=== PATIENT | female | born 1940 | race Caucasian/White ===

== ENCOUNTER 2017-01-12 09:20 | Emergency (ER) | payer OTHER ==
[2017-01-12 09:35] VITALS: BMI 24.2
--- NOTE | 2017-01-12 09:38 | PDOC ---
History of Present Illness - General Chief Complaint: Pain Stated Complaint: LEFT SHOULDER, LEFT ARM TINGLING, PAIN Time Seen by Provider: 01/12/17 09:27 History Source: Patient Exam Limitations: No Limitations - History of Present Illness Initial Comments: 01/12/17 09:32 76 y/o female with left arm pain and tingling for 3-4 days. Noticed increase SOB and concerned about heart failure. Denies chest pain, back pain, fall or trauma. No fever or chills or cough. Denies headache or weakness. Took a Naproxen and feeling better. No neck pain. No jaw or chest pain. Has been sleeping on extra pillow, but no swelling in legs. This has happened before when she went into heart failure as per patient. 01/12/17 10:46 Severity: mild Associated Symptoms: denies: chest pain, cough, diaphoresis NIH Stroke Scale - Initial Evaluation Level of consciousness: Alert Ask patient the month and their age: Answers both correctly Ask patient to open & close eyes; make fist and let go: Obeys both correctly Best gaze (horizontal eye movement): Normal Visual field testing: No visual field loss Facial paresis (Show teeth/raise eyebrows/close eyes tight): Normal symmetrical movement Motor Function: Left Arm: Normal Motor Function: Right Arm: Normal (extends arm 90 (or 45) degrees for 10 seconds without drift Motor Function: Left Leg: Normal (extends leg 30 degrees for 5 seconds without drift) Motor Function: Right Leg: Normal (extends leg 30 degrees for 5 seconds without drift) Limb Ataxia: No ataxia Sensory(Use pinprick test arms,legs,trunk,face/side to side): Normal Best language (Describe picture, name items, read sentences): No Aphasia Dysarthria (read several words): Normal articulation Extinction and Inattention: No abnormality - Total Score NIH Stroke Scale Score: 0 Past History - Past Medical History Allergies/Adverse Reactions: Allergies Allergy/AdvReac Type Severity Reaction Status Date / Time latex Allergy Severe Hives Verified 01/12/17 09:25 codeine [Codeine] Allergy Intermediate Verified 01/12/17 09:25 Penicillins Allergy Intermediate Verified 01/12/17 09:25 shellfish derived Allergy Verified 01/12/17 09:25 "MYCINS" Allergy Uncoded 01/12/17 09:25 Home Medications: Ambulatory Orders Aspirin [Aspirin EC] 81 mg PO DAILY 01/12/17 Atorvastatin Ca [Lipitor] 10 mg PO HS 01/12/17 Carvedilol 6.25 mg PO BID 01/12/17 Cholecalciferol (Vitamin D3) [Vitamin D3] 1,000 unit PO DAILY 01/12/17 Losartan Potassium 100 mg PO BID 01/12/17 Magnesium 500 mg PO DAILY 01/12/17 Metformin HCl [Glucophage] 1,000 mg PO BID 01/12/17 Spironolactone 25 mg PO DAILY 01/12/17 Anemia: No Asthma: No Cancer: No Cardiac Disorders: Yes CVA: No COPD: No CHF: Yes Dementia: No Diabetes: Yes (2000) GI Disorders: No Disorders: No HTN: No Hypercholesterolemia: No Liver Disease: No Seizures: No Thyroid Disease: No - Surgical History Abdominal Surgery: No Appendectomy: No Cardiac Surgery: No Cholecystectomy: No Lung Surgery: No Neurologic Surgery: No Orthopedic Surgery: Yes (RIGHT KNEE ARTHROSCOPY 06/23) - Psycho/Social/Smoking Cessation Hx Anxiety: No Suicidal Ideation: No Smoking Status: No Smoking History: Never smoked Have you smoked in the past 12 months: No Number of Cigarettes Smoked Daily: 0 If you are a former smoker, when did you quit?: 15 YRS AGO Hx Alcohol Use: No Drug/Substance Use Hx: No Substance Use Type: None Hx Substance Use Treatment: No Review of Systems - Review of Systems Able to Perform ROS?: Yes Is the patient limited [place] proficient: No Constitutional: No: Chills, Fever Respiratory: Yes: Orthopnea, Shortness of Breath. No: Cough Cardiac (ROS): No: Chest Pain, Edema ABD/GI: No: Diarrhea, Nausea, Vomiting : No: Dysuria Musculoskeletal: No: Back Pain All Other Systems: Reviewed and Negative *Physical Exam - Physical Exam General Appearance: Yes: Nourished, Appropriately Dressed. No: Apparent Distress HEENT: positive: EOMI, TAMMY, Normal ENT Inspection, Normal Voice Neck: positive: Trachea midline, Supple, Other (no spinous process tenderness, full ROM). negative: Tender, Normal Thyroid, Rigid, Carotid bruit, Thyromegaly Respiratory/Chest: positive: Lungs Clear, Normal Breath Sounds. negative: Chest Tender, Respiratory Distress, Crackles, Rales, Stridor, Wheezing Cardiovascular: positive: Regular Rhythm, Regular Rate, S1, S2. negative: Edema , JVD, Murmur Vascular Pulses: Femoral (R): 4+, Femoral (L): 4+, Carotid (R): 4+, Carotid (L) : 4+, Dorsalis-Pedis (R): 4+, Doralis-Pedis (L): 4+ Gastrointestinal/Abdominal: positive: Normal Bowel Sounds, Flat, Soft. negative : Tender, Organomegaly, Pulsatile Mass Lymphatic: negative: Adenopathy, Tenderness, Other Musculoskeletal: positive: Normal Inspection. negative: CVA Tenderness Extremity: positive: Normal Capillary Refill, Normal Inspection, Normal Range of Motion Integumentary: positive: Normal Color, Dry, Warm Neurologic: positive: hybrid technologist II-XII NML intact, Fully Oriented, Alert, Normal Mood/ Affect (strength 5+/5 b/l in UE and LE, no focal deficits noted), Normal Response, Motor Strength 5/5 Heart Score/ECG Review - History History: Slightly suspicious - Electrocardiogram EKG: Normal - Age Age: >/= 65 - Risk Factors Risk Factors Heart Score: Yes Hx Hypertension, Yes Hx Diabetes Based on the list above the patient has:: >/=3 risk factors or Hx atherosclerotic disease - ECG Intrepretation Rhythm: Regular Rhythm Comment:: 01/12/17 09:37 HR 67 NSR, no ST-T wave elevations noted - QRS Comment:: 01/12/17 09:43 When compared to EKG on 04/07/2015, today's EKG improved, NSR with no ST-T wave changes today compared to old EKG - ECG Impressions Normal ECG: Yes Non-specific ST Elevation: No ED Treatment Course - LABORATORY CBC & Chemistry Diagram: 01/12/17 09:40 01/12/17 09:40 - RADIOLOGY Radiology Studies Ordered: Category Date Time Status CHEST X-RAY PORTABLE* [RAD] Stat Radiology 01/12/17 09:30 Ordered 01/12/17 10:13 CXR NAD 01/12/17 11:22 Pt is feeling better, explained pain/tingling can be related to diabetic neuropathy or pinched nerve. Neurologically intact, no sign of stroke Spoke with Dr. Barcenas, covering for Dr. 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 Chest X-Ray Result: No Infiltrates *DC/Admit/Observation/Transfer Diagnosis at time of Disposition: Pain of left upper extremity - Discharge Dispostion Disposition: HOME Condition at time of disposition: Stable Admit: No - Patient Instructions Printed Discharge Instructions: DI for Arm Pain Additional Instructions: Rest, Tylenol Naproxen 2x/day as needed Follow up with [employer] Supervisor this week If worsen return to ER
[2017-01-12 10:02] LABS: MCH 29.8 pg (25.7-33.7); MCHC 33.8 g/dl (32.0-36.0); MEAN CELL VOLUME 87.9 fl (80-96); MEAN PLT VOLUME 8.4 fl (7.5-11.1); PLATELET COUNT 239 K/MM3 (134-434); RDW 12.7 % (11.6-15.6); WHITE BLOOD COUNT 7.7 K/mm3 (4.0-10.8)
[2017-01-12 10:04] LABS: BASOPHIL 0.8 % (0-2.0); EOSINOPHIL 2.6 % (0-4.5); NEUTROPHILS 66.8 % (42.8-82.8)
[2017-01-12 10:08] LABS: ALBUMIN 3.9 g/dl (3.5-5.0); ALK PHOS 68 U/L (32-92); ANION GAP 6 (8-16); BILIRUBIN,TOTAL 0.4 mg/dl (0.2-1.0); CALCIUM 9.1 mg/dl (8.4-10.2); CO2 25 mmol/L (22-28); CREATININE 1.3 mg/dl (0.6-1.3); GLUCOSE,RANDOM 224 mg/dl (74-106); SGOT/AST 15 U/L (10-42); SGPT/ALT 10 U/L (10-40); TOT PROT 6.1 g/dl (6.4-8.3)
[2017-01-12 11:29] VITALS: BP 149/84; PULSE 78; TEMP 98.1
--- NOTE | 2017-01-12 20:36 | EKG ---
Test Reason : Blood Pressure : / mmHG Vent. Rate : 067 BPM Atrial Rate : 067 BPM P-R Int : 168 ms QRS Dur : 080 ms QT Int : 430 ms P-R-T Axes : 063 043 092 degrees QTc Int : 454 ms SINUS RHYTHM NONSPECIFIC T WAVE ABNORMALITY NO PREVIOUS ECGS AVAILABLE Confirmed by JEFF SHEIKH MD ([id number]) on 01/12/2017 8:36:13 PM Referred By: EDA BARTHOLOMEW Confirmed By:JEFF HSEIKH MD
== END 2017-01-12 11:30 | disposition home or self-care (01) ==
LOC: FER 09:20
DX: M79.602 Pain in left arm (principal); I50.9 Heart failure, unspecified; E11.9 Type 2 diabetes mellitus without complications; Z87.891 Personal history of nicotine dependence
CPT/HCPCS: 36415; 71010-TC; 80053; 83880; 84484; 85025; 93005; 99285-25

== ENCOUNTER 2017-09-03 20:20 | Observation (INO) | payer OTHER ==
--- NOTE | 2017-09-03 20:35 | PDOC ---
History of Present Illness - General History Source: Patient Exam Limitations: No Limitations - History of Present Illness Initial Comments: The patient is a 77 year old female who presents to the emergency department complaining of ankle swelling and shortness of breath. The patient reports having bilateral ankle swelling occurring at the start of the month. She reports shortness of breath started a few days ago and has progressively worsened. She reports right sided pain with breathing. She describes the symptoms and pain similar to previous episodes related to CHF. The patient reports 4 pillow orthopnea which transitioned from 2 pillows. The patient denies chest pain, shortness of breath, headache, and dizziness. Denies fevers, chills, nausea, vomiting, diarrhea, and constipation. Denies dysuria, frequency, urgency, and hematuria. Denies immobilization. Denies recent travel. Denies sick contact. Denies any other kinds of injury. Denies suicidal or homicidal ideations. Denies auditory or visual hallucinations PAST MEDICAL HISTORY: Cardiac disorders, CHF, Diabetes, HTN, HLD, and Myasthenia Gravis. PAST SURGICAL HISTORY: Triple Bypass (2016), Cataracts. FAMILY HISTORY: no pertinent history SOCIAL HISTORY: Former smoker, 2002. Pt lives with family and is employed. MEDICATIONS: reviewed ALLERGIES: As per nursing notes ROS General: No fevers or chills, no weakness, no weight loss HEENT: No change in vision. No sore throat,. No ear pain Cardiovascular: (+)Shortness of breath. No chest pain. Respiratory:No cough, or wheezing. Gastrointestinal: no nausea, vomiting, diarrhea or constipation, No rectal bleeding Genitourinary: No dysuria, hematuria, or frequency Musculoskeletal: (+)Bilateral ankle swelling. (+)Pain to right side of body. Neurologic: No headache, vertigo, dizziness or loss of consciousness Psychiatric: nor depression Skin: No rashes or easy bruising Endocrine: no increased thirst or abnormal weight change Allergic: no skin or latex allergy All other systems reviewed and normal Exam: General: Well-nourished well-developed individual, no acute distress HEENT: Throat: Normal, tonsils normal, no erythema or exudate Neck: Supple, no meningeal signs, no lymphadenopathy Eyes::Pupils equal reactive and round, extraocular motion intact Chest: Nontender to palpation Cardiac: S1-S2 normal, regular rate and rhythm, no murmurs rubs or gallops Respiratory:(+)Few rales at bilateral bases. Abdomen: Soft, nondistended, normal bowel sounds, nontender to palpation diffusely Extremities: (+)Mild non pitting edema of feet, bilaterally. Otherwise, normal range of motion. Skin: No rashes Neuro: Alert and oriented x3, nonfocal exam, grossly intact, normal gait Psych: Normal mood and affect <Yoli Uriostegui - Last Filed: 09/03/17 21:32> - General History Source: Patient Exam Limitations: No Limitations - History of Present Illness Initial Comments: 09/03/17 21:04 A portion of this note was documented by scribe services under my direction. I have reviewed the details of the note, within reason, and agree with the documentation. The case summary and management plan written by me. Medical decision making: This is a 77-year-old female who comes in complaining of shortness of breath. Progressive times the last 2 days patient has gone from sleeping on 2 pillows to 4 pillow orthopnea. Patient is also complaining of some bilateral foot and ankle edema. Patient has a history significant for triple bypass 2 years ago with similar symptoms prior to her triple bypass. We'll obtain workup including CBC, comp, PT, BNP, EKG, chest x-ray, cardiac enzymes. Well monitor, reassess and review results of workup. 09/03/17 21:57 Reassessment patient feels better with some oxygen. Patient's EKG Shows normal sinus rhythm at a rate of 72 and old anterior infarct otherwise no acute ST-T wave changes Patient has a normal white count and no left shift Patient's glucose is mildly elevated at 172 Patient's urinalysis does show a urinary tract infection will start patient on Macrobid Patient's heart score is 6 will admit patient to an observational telemetry bed to rule her out. <Raphael Davis I - Last Filed: 09/03/17 22:00> - General Chief Complaint: Shortness of Breath Stated Complaint: SOB/EDEMA Time Seen by Provider: 09/03/17 20:24 Past History <Yoli Uriostegui - Last Filed: 09/03/17 21:32> - Past Medical History Anemia: No Asthma: No Cancer: No Cardiac Disorders: Yes CVA: No COPD: No CHF: Yes Dementia: No Diabetes: Yes GI Disorders: No Disorders: No HTN: Yes Hypercholesterolemia: No Liver Disease: No Seizures: No Thyroid Disease: No - Surgical History Abdominal Surgery: No Appendectomy: No Cardiac Surgery: No Cholecystectomy: No Lung Surgery: No Neurologic Surgery: No Orthopedic Surgery: Yes (RIGHT KNEE ARTHROSCOPY 06/23) - Suicide/Smoking/Psychosocial Hx Smoking Status: No Smoking History: Never smoked Have you smoked in the past 12 months: No Number of Cigarettes Smoked Daily: 0 If you are a former smoker, when did you quit?: 15 YRS AGO Hx Alcohol Use: No Drug/Substance Use Hx: No Substance Use Type: None Hx Substance Use Treatment: No <Raphael Davis I - Last Filed: 09/03/17 22:00> - Past Medical History Allergies/Adverse Reactions: Allergies Allergy/AdvReac Type Severity Reaction Status Date / Time latex Allergy Severe Hives Verified 01/12/17 09:25 codeine [Codeine] Allergy Intermediate Verified 01/12/17 09:25 Penicillins Allergy Intermediate Verified 01/12/17 09:25 shellfish derived Allergy Verified 01/12/17 09:25 "MYCINS" Allergy Uncoded 01/12/17 09:25 Home Medications: Ambulatory Orders Aspirin [Aspirin EC] 81 mg PO DAILY 01/12/17 Atorvastatin Ca [Lipitor] 10 mg PO HS 01/12/17 Carvedilol 6.25 mg PO BID 01/12/17 Cholecalciferol (Vitamin D3) [Vitamin D3] 1,000 unit PO DAILY 01/12/17 Losartan Potassium 100 mg PO BID 01/12/17 Magnesium 500 mg PO DAILY 01/12/17 Metformin HCl [Glucophage] 1,000 mg PO BID 01/12/17 Spironolactone 25 mg PO DAILY 01/12/17 *Physical Exam - Vital Signs Last Vital Signs Temp Pulse Resp BP Pulse Ox 99.2 F 82 16 166/90 99 09/03/17 20:21 09/03/17 20:21 09/03/17 20:21 09/03/17 20:21 09/03/17 20:21 <Yoli Uriostegui - Last Filed: 09/03/17 21:32> - Vital Signs Last Vital Signs Temp Pulse Resp BP Pulse Ox 99.2 F 82 16 166/90 99 09/03/17 20:21 09/03/17 20:21 09/03/17 20:21 09/03/17 20:21 09/03/17 20:21 <Raphael Davis I - Last Filed: 09/03/17 22:00> Heart Score/ECG Review - History History: Moderately suspicious - Electrocardiogram EKG: Non specific repolarization disturbance - Age Age: >/= 65 - Risk Factors Risk Factors Heart Score: Yes Hx Hypercholesterolemia, Yes Hx Hypertension, Yes Positive family hx of cardiac disease Based on the list above the patient has:: >/=3 risk factors or Hx atherosclerotic disease - Troponin Troponin: </= normal limit - Score Heart Score - Total: 6 <Raphael Davis I - Last Filed: 09/03/17 22:00> ED Treatment Course - LABORATORY CBC & Chemistry Diagram: 09/03/17 21:01 09/03/17 21:01 - ADDITIONAL ORDERS Additional order review: Laboratory Results 09/03/17 21:01 Urine Color Yellow Urine Appearance Clear Urine pH 5.5 Ur Specific [place] 1.015 Urine Protein Negative Urine Glucose (UA) Negative Urine Ketones Negative Urine Blood Negative Urine Nitrite Negative Urine Bilirubin Negative Urine Urobilinogen 0.2 Ur Leukocyte Esterase 2+ H 09/03/17 21:01 RBC 4.45 MCV 85.5 MCHC 34.4 RDW 12.3 MPV 7.9 Neutrophils % 59.0 Lymphocytes % 29.9 Monocytes % 7.9 Eosinophils % 2.7 Basophils % 0.5 <Yoli Uriostegui - Last Filed: 09/03/17 21:32> - LABORATORY CBC & Chemistry Diagram: 09/03/17 21:01 09/03/17 21:01 <Raphael Davis I - Last Filed: 09/03/17 22:00> *DC/Admit/Observation/Transfer - Attestations Scribe Attestion: Documentation prepared by Yoli Uriostegui, acting as certified court/medical interpreter for Raphael Davis MD. <Yoli Uriostegui - Last Filed: 09/03/17 21:32> - Discharge Dispostion Admit: Yes <Raphael Davis I - Last Filed: 09/03/17 22:00> Diagnosis at time of Disposition: Dyspnea Qualifiers: Dyspnea type: shortness of breath Qualified Code(s): R06.02 - Shortness of breath; R06.00 - Dyspnea, unspecified; R06.01 - Orthopnea - Discharge Dispostion Condition at time of disposition: Stable - Referrals Referrals: Tammie Akins [Primary Care Provider] - - Patient Instructions - Post Discharge Activity
[2017-09-03 21:10] LABS: BASO % 0.5 % (0-2.0); EOS % 2.7 % (0-4.5); HEMATOCRIT 38.1 % (32.4-45.2); HEMOGLOBIN 13.1 GM/dl (10.7-15.3); LYMPH % 29.9 % (8-40); MCH 29.5 pg (25.7-33.7); MCHC 34.4 g/dl (32.0-36.0); MEAN CELL VOLUME 85.5 fl (80-96); MEAN PLT VOLUME 7.9 fl (7.5-11.1); MONO % 7.9 % (3.8-10.2); PH,URINE 5.5 (4.5-8); PLATELET COUNT 317 K/MM3 (134-434); RBC 4.45 M/mm3 (3.60-5.2); RDW 12.3 % (11.6-15.6); URINE APPEARANCE Clear; URINE BILIRUBIN Negative (NEGATIVE); URINE BLOOD Negative (NEGATIVE); URINE GLUCOSE (UA) Negative (NEGATIVE); URINE KETONE Negative (NEGATIVE); URINE NITRITE Negative (NEGATIVE); URINE PROTEIN Negative (NEGATIVE); URINE UROBILINOGEN 0.2 (0.2-1.0); WHITE BLOOD COUNT 8.8 K/mm3 (4.0-10.8)
[2017-09-03 21:11] LABS: URINE COLOR YELLOW; URINE LEUK ESTERASE 2+ (NEGATIVE)
[2017-09-03 21:24] LABS: INR 1.02 (0.82-1.09); PROTHROMBIN TIME (PATIENT) 11.4 SEC (10.2-13.0)
[2017-09-03 21:26] LABS: EPI CELLS FEW /HPF; URINE BACTERIA MODERATE /hpf (NEGATIVE); URINE RBC 0-2 /hpf (0-3); URINE WBC 20-30 (0-5)
[2017-09-03 21:28] LABS: ALBUMIN 3.7 g/dl (3.5-5.0); ALK PHOS 81 U/L (32-92); ANION GAP 5 (8-16); BILIRUBIN,TOTAL 0.6 mg/dl (0.2-1.0); BLOOD UREA NITROGEN 32 mg/dl (7-18); CALCIUM 9.3 mg/dl (8.4-10.2); CHLORIDE 103 mmol/L (98-107); CO2 27 mmol/L (22-28); CREATININE 1.3 mg/dl (0.6-1.3); GLUCOSE,RANDOM 172 mg/dl (74-106); POTASSIUM 4.6 mmol/L (3.5-5.1); SGOT/AST 15 U/L (10-42); SGPT/ALT 13 U/L (10-40); SODIUM 135 mmol/L (136-145); TOT PROT 6.6 g/dl (6.4-8.3)
[2017-09-03] MEDS ORDERED: NITROFURANTOIN MACROCRYSTAL 50 MG CAPSULE (FP) PO SCH (22:00)
--- NOTE | 2017-09-03 22:26 | HP ---
CHIEF COMPLAINT:SOB/congestion and left ankle swelling PCP: Dr. Tammie mclaughlin HISTORY OF PRESENT ILLNESS: This 77 yr old female presented to Er with c/o "unable to catch breath" and congestion with left ankle swelling, Her daughter also states she's been somewhat dizzy needing to catch her balance in recent. She denies fever, cough , nausea, vomiting, abd pain, chest pain, back pain She has a significant hx of CABG and MVR in 2016 in [facility]. She is on ASA and Plavix. 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 (3) CXR neg (4) incidental finding of UTI Recent Travel:denies PAST MEDICAL HISTORY: HLD, HTN, DM PAST SURGICAL HISTORY: CAGB, MVR Social History: Smoking:former Alcohol: Drugs: Family History: Allergies latex Allergy (Severe, Verified 01/12/17 09:25) Hives codeine [Codeine] Allergy (Intermediate, Verified 01/12/17 09:25) Penicillins Allergy (Intermediate, Verified 01/12/17 09:25) shellfish derived Allergy (Verified 01/12/17 09:25) "MYCINS" Allergy (Uncoded 01/12/17 09:25) HOME MEDICATIONS: Home Medications Medication Instructions Recorded Aspirin [Aspirin EC] 81 mg PO DAILY 01/12/17 Atorvastatin Ca [Lipitor] 10 mg PO HS 01/12/17 Carvedilol 6.25 mg PO BID 01/12/17 Cholecalciferol (Vitamin D3) 1,000 unit PO DAILY 01/12/17 [Vitamin D3] Losartan Potassium 100 mg PO BID 01/12/17 Magnesium 500 mg PO DAILY 01/12/17 Metformin HCl [Glucophage] 1,000 mg PO BID 01/12/17 Spironolactone 25 mg PO DAILY 01/12/17 REVIEW OF SYSTEMS CONSTITUTIONAL: Absent: fever, chills, diaphoresis, generalized weakness, malaise, loss of appetite, weight change HEENT: Absent: rhinorrhea, nasal congestion, throat pain, throat swelling, difficulty swallowing, mouth swelling, ear pain, eye pain, visual changes CARDIOVASCULAR: Absent: chest pain, syncope, palpitations, irregular heart rate, lightheadedness , peripheral edema RESPIRATORY: Absent:- cough, +shortness of breath,- dyspnea with exertion, +orthopnea, - wheezing,- stridor, -hemoptysis GASTROINTESTINAL: Absent: abdominal pain, abdominal distension, nausea, vomiting, diarrhea, constipation, melena, hematochezia GENITOURINARY: Absent: dysuria, frequency, urgency, hesitancy, hematuria, flank pain, genital pain MUSCULOSKELETAL: Absent: myalgia, arthralgia, joint swelling, back pain, neck pain, left ankle swelling, no pitting SKIN: Absent: rash, itching, pallor HEMATOLOGIC/IMMUNOLOGIC: Absent: easy bleeding, easy bruising, lymphadenopathy, frequent infections ENDOCRINE: Absent: unexplained weight gain, unexplained weight loss, heat intolerance, cold intolerance NEUROLOGIC: Absent: headache, focal weakness or paresthesias, dizziness, unsteady gait, seizure, mental status changes, bladder or bowel incontinence PSYCHIATRIC: Absent: anxiety, depression, suicidal or homicidal ideation, hallucinations. PHYSICAL EXAMINATION Vital Signs - 24 hr 09/03/17 20:21 Temperature 99.2 F Pulse Rate 82 Respiratory 16 Rate Blood Pressure 166/90 O2 Sat by Pulse 99 Oximetry (%) GENERAL: Awake, alert, and fully oriented, in no acute distress. HEAD: Normal with no signs of trauma. LUNGS: Breath sounds equal, clear to auscultation bilaterally. No wheezes, and no crackles. No accessory muscle use. Can complete full sentences HEART: Regular rate and rhythm, normal S1 and S2 without murmur, rub or gallop. ABDOMEN: Soft, nontender, not distended, normoactive bowel sounds, no guarding, no rebound, no masses. No hepatomegaly or splenomegaly. MUSCULOSKELETAL: Normal range of motion at all joints. No bony deformities or tenderness. No CVA tenderness. UPPER EXTREMITIES: 2+ pulses, warm, well-perfused. No cyanosis. No clubbing. No peripheral edema. LOWER EXTREMITIES: 2+ pulses, warm, well-perfused. No calf tenderness. No peripheral edema. NEUROLOGICAL: Cranial nerves II-XII intact. Normal speech. Normal gait. PSYCHIATRIC: Cooperative. Good eye contact. Appropriate mood and affect. SKIN: Warm, dry, normal turgor, no rashes or lesions noted, normal capillary refill. Laboratory Results - last 24 hr 09/03/17 09/03/17 09/03/17 21:01 21:01 21:01 WBC 8.8 RBC 4.45 Hgb 13.1 Hct 38.1 MCV 85.5 MCH 29.5 MCHC 34.4 RDW 12.3 Plt Count 317 MPV 7.9 Neutrophils % 59.0 Lymphocytes % 29.9 Monocytes % 7.9 Eosinophils % 2.7 Basophils % 0.5 PT with INR 11.4 INR 1.02 Sodium Potassium Chloride Carbon Dioxide Anion Gap BUN Creatinine Creat Clearance w eGFR Random Glucose Calcium Total Bilirubin AST ALT Alkaline Phosphatase Creatine Kinase Troponin I Total Protein Albumin Urine Color Yellow Urine Appearance Clear Urine pH 5.5 Ur Specific [place] 1.015 Urine Protein Negative Urine Glucose (UA) Negative Urine Ketones Negative Urine Blood Negative Urine Nitrite Negative Urine Bilirubin Negative Urine Urobilinogen 0.2 Ur Leukocyte Esterase 2+ H Urine RBC 0-2 Urine WBC 20-30 Ur Epithelial Cells Few Urine Bacteria Moderate 09/03/17 09/03/17 09/03/17 21:01 21:01 21:01 WBC RBC Hgb Hct MCV MCH MCHC RDW Plt Count MPV Neutrophils % Lymphocytes % Monocytes % Eosinophils % Basophils % PT with INR INR Sodium 135 L Potassium 4.6 Chloride 103 Carbon Dioxide 27 Anion Gap 5 L BUN 32 H D Creatinine 1.3 Creat Clearance w eGFR 39.51 Random Glucose 172 H D Calcium 9.3 Total Bilirubin 0.6 D AST 15 ALT 13 D Alkaline Phosphatase 81 Creatine Kinase 113 Troponin I < 0.03 Total Protein 6.6 Albumin 3.7 Urine Color Urine Appearance Urine pH Ur Specific [place] Urine Protein Urine Glucose (UA) Urine Ketones Urine Blood Urine Nitrite Urine Bilirubin Urine Urobilinogen Ur Leukocyte Esterase Urine RBC Urine WBC Ur Epithelial Cells Urine Bacteria ASSESSMENT/PLAN: This 77 yr old female with new onset of sob, orthpnea, left ankle swelling Problem List - Problem (1) Pedal edema Assessment/Plan: -left ankle swelling noted without trauma -on spiraldactone daily with compliance Code(s): R60.0 - LOCALIZED EDEMA (2) Shortness of breath Assessment/Plan: -feels congested and sob but no distress noted -CXR neg -continue with diuretic -monitor daily weight -monitor sats -cardiology consult, Dr. George -awaiting BNP results Code(s): R06.02 - SHORTNESS OF BREATH (3) Diabetes mellitus Assessment/Plan: -continue with home meds -finger sticks -diet ADA Code(s): E11.9 - TYPE 2 DIABETES MELLITUS WITHOUT COMPLICATIONS Qualifiers: Diabetes mellitus type: type 2 Diabetes mellitus complication status: without complication Qualified Code(s): E11.9 - Type 2 diabetes mellitus without complications (4) Hypertension Assessment/Plan: -monitor b/p -continue with home meds for now Code(s): I10 - ESSENTIAL (PRIMARY) HYPERTENSION Qualifiers: Hypertension type: essential hypertension Qualified Code(s): I10 - Essential (primary) hypertension (5) Myasthenia gravis in remission Code(s): G70.00 - MYASTHENIA GRAVIS WITHOUT (ACUTE) EXACERBATION (6) Urinary tract infection Assessment/Plan: -pending cx -started on ABT Code(s): N39.0 - URINARY TRACT INFECTION, SITE NOT SPECIFIED Visit type - Emergency Visit Emergency Visit: Yes Care time: The patient presented to the Emergency Department on the above date and was hospitalized for further evaluation of their emergent condition. - New Patient This patient is new to me today: Yes Date on this admission: 09/03/17 - Critical Care Critical Care patient: No Hospitalist Screening - Colonoscopy Questionnaire Colonoscopy Questionnaire: Colonoscopy Questionnaire - Patient: 50 - 75 years old and never had a screening colonoscopy: Unknown History of colon or rectal polyps, or CA: Unknown History of IBD, Crohn's disease or UC: Unknown History of abdominal radiation therapy as a child: Unknown - Relative: 1 with colon or rectal CA, or polyps at age 60 or younger: Unknown Colon or rectal CA diagnosed at age 45 or younger: Unknown Multiple relatives with colon or rectal CA: Unknown - Outcome: Screening Result: Negative Screen
[2017-09-03 22:29] LABS: N-TERMINAL BNP 454.05 pg/ml (5-450)
[2017-09-03] MEDS ORDERED: NITROFURANTOIN MACROCRYSTAL 50 MG CAPSULE (FP) ONE (22:52)
[2017-09-03] MEDS ORDERED: NITROFURANTOIN MACROCRYSTAL 50 MG CAPSULE (FP) PO ONE (23:00)
[2017-09-03 23:38] VITALS: TEMP 98.9; BMI 24.3
[2017-09-04] MEDS ORDERED: NITROFURANTOIN MACROCRYSTAL 50 MG CAPSULE (FP) PO SCH (06:00)
[2017-09-04 06:11] VITALS: BP 152/65; PULSE 74
[2017-09-04] MEDS ORDERED: metFORMIN HCL 500 MG TABLET (FP) PO SCH (07:00)
[2017-09-04 08:32] LABS: BASO % 0.4 % (0-2.0); EOS % 2.7 % (0-4.5); HEMATOCRIT 36.8 % (32.4-45.2); HEMOGLOBIN 12.7 GM/dl (10.7-15.3); LYMPH % 26.8 % (8-40); MCH 29.7 pg (25.7-33.7); MCHC 34.6 g/dl (32.0-36.0); MEAN CELL VOLUME 85.9 fl (80-96); MEAN PLT VOLUME 7.9 fl (7.5-11.1); MONO % 9.3 % (3.8-10.2); NEUT % 60.8 % (42.8-82.8); PLATELET COUNT 285 K/MM3 (134-434); RBC 4.28 M/mm3 (3.60-5.2); RDW 12.4 % (11.6-15.6); WHITE BLOOD COUNT 7.8 K/mm3 (4.0-10.8)
[2017-09-04 09:05] LABS: ALBUMIN 3.6 g/dl (3.5-5.0); ALK PHOS 73 U/L (32-92); ANION GAP 8 (8-16); BILIRUBIN,TOTAL 0.9 mg/dl (0.2-1.0); BLOOD UREA NITROGEN 27 mg/dl (7-18); CALCIUM 9.2 mg/dl (8.4-10.2); CHLORIDE 101 mmol/L (98-107); CO2 27 mmol/L (22-28); CREATININE 1.3 mg/dl (0.6-1.3); GLUCOSE,RANDOM 178 mg/dl (74-106); MAGNESIUM 1.9 mg/dL (1.8-2.4); PHOSPHOROUS 3.8 mg/dl (2.5-4.6); POTASSIUM 4.8 mmol/L (3.5-5.1); SGOT/AST 18 U/L (10-42); SGPT/ALT 14 U/L (10-40); SODIUM 136 mmol/L (136-145); TOT PROT 6.3 g/dl (6.4-8.3)
--- NOTE | 2017-09-04 09:19 | CON.CARD ---
Consult Consult Specialty:: Cardiology Referred by:: Javier Akins MD Reason for Consultation:: Dyspnea, LE edema - History of Present Illness Chief Complaint: Dyspnea, LE edema History of Present Illness: This 77 yr old female hx of CAD s/p CABG and MVR in 2016 in [facility] presented to [facility] with c/o dyspnea and and left ankle swelling since resolvced, Her daughter also states she's been somewhat dizzy needing to catch her balance in recent. She denies fever, cough, nausea, vomiting, abd pain, chest pain, back pain, near or true syncope, orthopnea, PND or LE edema. 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) Cardio/Vascular: Yes: HTN, Hyperlipdemia ...: No - Past Surgical History Past Surgical History: Yes: CABG - Alcohol/Substance Use Hx Alcohol Use: Yes (occasional) - Smoking History Smoking history: Former smoker Have you smoked in the past 12 months: No Aproximately how many cigarettes per day: 0 If you are a former smoker, when did you quit?: 15 YRS AGO Home Medications - Allergies Allergies/Adverse Reactions: Allergies Allergy/AdvReac Type Severity Reaction Status Date / Time latex Allergy Severe Hives Verified 01/12/17 09:25 codeine [Codeine] Allergy Intermediate Verified 01/12/17 09:25 Penicillins Allergy Intermediate Verified 01/12/17 09:25 shellfish derived Allergy Verified 01/12/17 09:25 "MYCINS" Allergy Uncoded 01/12/17 09:25 - Home Medications Home Medications: Ambulatory Orders Aspirin [Aspirin EC] 81 mg PO DAILY 01/12/17 Atorvastatin Ca [Lipitor] 10 mg PO HS 01/12/17 Carvedilol 6.25 mg PO BID 01/12/17 Cholecalciferol (Vitamin D3) [Vitamin D3] 1,000 unit PO DAILY 01/12/17 Losartan Potassium 100 mg PO BID 01/12/17 Magnesium 500 mg PO DAILY 01/12/17 Metformin HCl [Glucophage] 1,000 mg PO BID 01/12/17 Spironolactone 25 mg PO DAILY 01/12/17 Review of Systems - Review of Systems Cardiovascular: reports: Edema, Shortness of Breath Vital Signs: Vital Signs Temperature 98.9 F 09/04/17 06:00 Pulse Rate 74 09/04/17 06:00 Respiratory Rate 18 09/04/17 06:22 Blood Pressure 152/65 09/04/17 06:00 O2 Sat by Pulse Oximetry (%) 98 09/04/17 08:56 Constitutional: Yes: No Distress, Calm, Thin Neck: Yes: Supple Respiratory: Yes: Regular, CTA Bilaterally Gastrointestinal: Yes: Normal Bowel Sounds, Soft Cardiovascular: Yes: Regular Rate and Rhythm JVD: No Carotid Bruit: No Heart Sounds: Yes: S1, S2 Murmur: Yes: Systolic Murmur, Grade 1 Edema: No - Other Data Labs, Other Data: CBC, BMP 09/04/17 08:01 09/04/17 08:01 INR, PTT INR 1.02 (0.82-1.09) 09/03/17 21:01 Troponin, BNP 09/03/17 09/03/17 09/04/17 21:01 21:01 08:00 Troponin I < 0.03 < 0.03 B-Natriuretic Peptide 454.05 H 09/04/17 08:01 Troponin I Cancelled B-Natriuretic Peptide Troponin, BNP 09/03/17 09/03/17 09/04/17 21:01 21:01 08:00 Troponin I < 0.03 < 0.03 B-Natriuretic Peptide 454.05 H 09/04/17 08:01 Troponin I Cancelled B-Natriuretic Peptide NSR Prior Cardiac Procedures: CABG, Valve Surgery Ejection Fraction %: LVEF > or = 40 % Imaging - Results Chest X-ray: Report Reviewed (NAD) Problem List - Problems (1) Diastolic dysfunction without heart failure Code(s): I51.9 - HEART DISEASE, UNSPECIFIED (2) Coronary artery disease Code(s): I25.10 - ATHSCL HEART DISEASE OF [place] CORONARY ARTERY W/O ANG PCTRS Qualifiers: Coronary Disease-Associated Artery/Lesion type: [place] artery [place] vs. transplanted heart: [place] heart Associated angina: without angina Qualified Code(s): I25.10 - Atherosclerotic heart disease of [place] coronary artery without angina pectoris (3) Status post mitral valve annuloplasty Code(s): Z98.890 - OTHER SPECIFIED POSTPROCEDURAL STATES (4) Dyspnea Code(s): R06.00 - DYSPNEA, UNSPECIFIED Qualifiers: Dyspnea type: shortness of breath Qualified Code(s): R06.02 - Shortness of breath; R06.00 - Dyspnea, unspecified; R06.01 - Orthopnea (5) Diabetes mellitus Code(s): E11.9 - TYPE 2 DIABETES MELLITUS WITHOUT COMPLICATIONS Qualifiers: Diabetes mellitus type: type 2 Diabetes mellitus complication status: without complication (6) Hyperlipidemia LDL goal <100 Code(s): E78.5 - HYPERLIPIDEMIA, UNSPECIFIED (7) Hypertension Code(s): I10 - ESSENTIAL (PRIMARY) HYPERTENSION Qualifiers: Hypertension type: essential hypertension Qualified Code(s): I10 - Essential (primary) hypertension Assessment/Plan 1. Dyspnea since resolved 2. CAD s/p CABG, angina pectoris 3. s/p MV annular ring 4. HTN/HCVD, BP not at goal control 5. Hyperlipidemia P:1. Ruled out for HI 2. Continue ASA 81 qd, Lipitor 10 qhs, increase carvedilol 12.5 bid, decrease losartan 100 qd, Aldactone 25 qd 3. May be d/shanika from CV-standpoint with f/u in office early next week 4. Thank you for consultative opportunity
[2017-09-04] MEDS ORDERED: ASPIRIN COATED 81 MG TABLET.EC PO SCH (10:00)
[2017-09-04] MEDS ORDERED: CARVEDILOL 12.5 MG TABLET (FP) PO SCH (10:00)
[2017-09-04] MEDS ORDERED: CARVEDILOL 6.25 MG TABLET (FP) PO SCH (10:00)
[2017-09-04] MEDS ORDERED: SPIRONOLACTONE 25 MG TABLET (FP) PO SCH (10:00)
[2017-09-04] MEDS ORDERED: LOSARTAN POTASSIUM 50 MG TABLET (FP) PO SCH ×2 (10:00)
--- NOTE | 2017-09-04 10:00 | EKG ---
Test Reason : Blood Pressure : / mmHG Vent. Rate : 070 BPM Atrial Rate : 070 BPM P-R Int : 182 ms QRS Dur : 078 ms QT Int : 424 ms P-R-T Axes : 069 034 080 degrees QTc Int : 457 ms NORMAL SINUS RHYTHM NORMAL ECG WHEN COMPARED WITH ECG OF 03-SEP-2017 21:12, NO SIGNIFICANT CHANGE WAS FOUND Confirmed by STAR ANDERSON MD ([id number]) on 09/04/2017 10:00:23 AM Referred By: SARY Confirmed By:STAR ANDERSON MD
--- NOTE | 2017-09-04 10:02 | EKG ---
Test Reason : Blood Pressure : / mmHG Vent. Rate : 072 BPM Atrial Rate : 072 BPM P-R Int : 172 ms QRS Dur : 072 ms QT Int : 420 ms P-R-T Axes : 072 045 056 degrees QTc Int : 459 ms NORMAL SINUS RHYTHM ANTERIOR INFARCT , AGE UNDETERMINED ABNORMAL ECG WHEN COMPARED WITH ECG OF 12-JAN-2017 09:27, NO SIGNIFICANT CHANGE WAS FOUND Confirmed by STAR ANDERSON MD ([id number]) on 09/04/2017 10:02:03 AM Referred By: DR BERGERON Confirmed By:STAR ANDERSON MD
[2017-09-04 10:07] LABS: INR 1.06 (0.82-1.09); PROTHROMBIN TIME (PATIENT) 11.8 SEC (10.2-13.0)
--- NOTE | 2017-09-04 10:46 | DS ---
Physical Exam: SUBJECTIVE: Patient seen and examined OBJECTIVE: Vital Signs Period Temp Pulse Resp BP Sys/Cope Pulse Ox Last 24 Hr 98.9 F-99.2 F 74-82 16-20 152-166/65-90 98-99 PHYSICAL EXAM GENERAL: The patient is awake, alert, and fully oriented, in no acute distress. HEAD: Normal with no signs of trauma. EYES: PERRL, extraocular movements intact, sclera anicteric, conjunctiva clear. ENT: Ears normal, nares patent, oropharynx clear without exudates, moist mucous membranes. NECK: Trachea midline, full range of motion, supple. LUNGS: Breath sounds equal, clear to auscultation bilaterally, no wheezes, no crackles, no accessory muscle use. HEART: Regular rate and rhythm, S1, S2 without murmur, rub or gallop. ABDOMEN: Soft, nontender, nondistended, normoactive bowel sounds, no guarding, no rebound, no hepatosplenomegaly, no masses. EXTREMITIES: 2+ pulses, warm, well-perfused, no edema. NEUROLOGICAL: Cranial nerves II through XII grossly intact. Normal speech, gait not observed. PSYCH: Normal mood, normal affect. SKIN: Warm, dry, normal turgor, no rashes or lesions noted. LABS Laboratory Results - last 24 hr 09/03/17 09/03/17 09/03/17 21:01 21:01 21:01 WBC 8.8 RBC 4.45 Hgb 13.1 Hct 38.1 MCV 85.5 MCH 29.5 MCHC 34.4 RDW 12.3 Plt Count 317 MPV 7.9 Neutrophils % 59.0 Lymphocytes % 29.9 Monocytes % 7.9 Eosinophils % 2.7 Basophils % 0.5 PT with INR 11.4 INR 1.02 Sodium Potassium Chloride Carbon Dioxide Anion Gap BUN Creatinine Creat Clearance w eGFR POC Glucometer Random Glucose Calcium Phosphorus Magnesium Total Bilirubin AST ALT Alkaline Phosphatase Creatine Kinase Troponin I B-Natriuretic Peptide Total Protein Albumin Urine Color Yellow Urine Appearance Clear Urine pH 5.5 Ur Specific Sargeant 1.015 Urine Protein Negative Urine Glucose (UA) Negative Urine Ketones Negative Urine Blood Negative Urine Nitrite Negative Urine Bilirubin Negative Urine Urobilinogen 0.2 Ur Leukocyte Esterase 2+ H Urine RBC 0-2 Urine WBC 20-30 Ur Epithelial Cells Few Urine Bacteria Moderate 09/03/17 09/03/17 09/03/17 21:01 21:01 21:01 WBC RBC Hgb Hct MCV MCH MCHC RDW Plt Count MPV Neutrophils % Lymphocytes % Monocytes % Eosinophils % Basophils % PT with INR INR Sodium 135 L Potassium 4.6 Chloride 103 Carbon Dioxide 27 Anion Gap 5 L BUN 32 H D Creatinine 1.3 Creat Clearance w eGFR 39.51 POC Glucometer Random Glucose 172 H D Calcium 9.3 Phosphorus Magnesium Total Bilirubin 0.6 D AST 15 ALT 13 D Alkaline Phosphatase 81 Creatine Kinase 113 Troponin I < 0.03 B-Natriuretic Peptide 454.05 H Total Protein 6.6 Albumin 3.7 Urine Color Urine Appearance Urine pH Ur Specific Sargeant Urine Protein Urine Glucose (UA) Urine Ketones Urine Blood Urine Nitrite Urine Bilirubin Urine Urobilinogen Ur Leukocyte Esterase Urine RBC Urine WBC Ur Epithelial Cells Urine Bacteria 09/04/17 09/04/17 09/04/17 05:28 08:00 08:01 WBC 7.8 RBC 4.28 Hgb 12.7 Hct 36.8 MCV 85.9 MCH 29.7 MCHC 34.6 RDW 12.4 Plt Count 285 MPV 7.9 Neutrophils % 60.8 Lymphocytes % 26.8 Monocytes % 9.3 Eosinophils % 2.7 Basophils % 0.4 PT with INR INR Sodium Potassium Chloride Carbon Dioxide Anion Gap BUN Creatinine Creat Clearance w eGFR POC Glucometer 157 Random Glucose Calcium Phosphorus Magnesium Total Bilirubin AST ALT Alkaline Phosphatase Creatine Kinase Troponin I < 0.03 B-Natriuretic Peptide Total Protein Albumin Urine Color Urine Appearance Urine pH Ur Specific Sargeant Urine Protein Urine Glucose (UA) Urine Ketones Urine Blood Urine Nitrite Urine Bilirubin Urine Urobilinogen Ur Leukocyte Esterase Urine RBC Urine WBC Ur Epithelial Cells Urine Bacteria 09/04/17 09/04/17 08:01 08:01 WBC RBC Hgb Hct MCV MCH MCHC RDW Plt Count MPV Neutrophils % Lymphocytes % Monocytes % Eosinophils % Basophils % PT with INR 11.8 INR 1.06 Sodium 136 Potassium 4.8 Chloride 101 Carbon Dioxide 27 Anion Gap 8 BUN 27 H Creatinine 1.3 Creat Clearance w eGFR 39.51 POC Glucometer Random Glucose 178 H Calcium 9.2 Phosphorus 3.8 Magnesium 1.9 Total Bilirubin 0.9 D AST 18 ALT 14 Alkaline Phosphatase 73 Creatine Kinase Troponin I Cancelled B-Natriuretic Peptide Total Protein 6.3 L Albumin 3.6 Urine Color Urine Appearance Urine pH Ur Specific Sargeant Urine Protein Urine Glucose (UA) Urine Ketones Urine Blood Urine Nitrite Urine Bilirubin Urine Urobilinogen Ur Leukocyte Esterase Urine RBC Urine WBC Ur Epithelial Cells Urine Bacteria HOSPITAL COURSE: Date of Admission:09/03/17 Date of Discharge: 09/04/17 Minutes to complete discharge: 45 Discharge Summary Reason For Visit: SOB/EDEMA Current Active Problems Coronary artery disease (Acute) Diastolic dysfunction without heart failure (Acute) Dyspnea (Acute) Pedal edema (Acute) Shortness of breath (Acute) Status post mitral valve annuloplasty (Acute) Urinary tract infection (Acute) Condition: Stable - Instructions Referrals: Tammie Akins [Primary Care Provider] - - Home Medications Comprehensive Discharge Medication List: Ambulatory Orders Aspirin [Aspirin EC] 81 mg PO DAILY 01/12/17 Atorvastatin Ca [Lipitor] 10 mg PO HS 01/12/17 Carvedilol 6.25 mg PO BID 01/12/17 Cholecalciferol (Vitamin D3) [Vitamin D3] 1,000 unit PO DAILY 01/12/17 Losartan Potassium 100 mg PO BID 01/12/17 Magnesium 500 mg PO DAILY 01/12/17 Metformin HCl [Glucophage] 1,000 mg PO BID 01/12/17 Spironolactone 25 mg PO DAILY 01/12/17
[2017-09-04 19:13] LABS: N-TERMINAL BNP 506.56 pg/ml (5-450)
[2017-09-04] MEDS ORDERED: ATORVASTATIN CA 10 MG TABLET (FP) PO SCH (22:00)
== END 2017-09-04 11:30 | disposition home or self-care (01) ==
LOC: FER 20:20 → FM/S 22:55
PROVIDERS: ADMIT Internal Medicine; ATTEND Nurse Practitioner Family
DX: R06.02 Shortness of breath (principal); R06.00 Dyspnea, unspecified; R06.01 Orthopnea; R60.0 Localized edema; I51.9 Heart disease, unspecified; I25.10 Atherosclerotic heart disease of native coronary artery without angina pectoris; I10 Essential (primary) hypertension; E11.8 Type 2 diabetes mellitus with unspecified complications; E78.5 Hyperlipidemia, unspecified; G70.00 Myasthenia gravis without (acute) exacerbation; N39.0 Urinary tract infection, site not specified; H26.9 Unspecified cataract; Z95.1 Presence of aortocoronary bypass graft; Z91.013 Allergy to seafood; Z91.040 Latex allergy status; Z88.5 Allergy status to narcotic agent; Z79.82 Long term (current) use of aspirin; Z79.84 Long term (current) use of oral hypoglycemic drugs; Z87.891 Personal history of nicotine dependence; Z98.890 Other specified postprocedural states
CPT/HCPCS: 36415; 71045-TC-FY; 80053; 81003; 81015; 82550; 82962; 83036; 83735; 83880; 84100; 84484; 85025; 85610; 93005; 99285-25; G0378

== ENCOUNTER 2021-09-02 11:09 | Observation (INO) | payer OTHER ==
[2021-09-02 13:34] LABS: BASO % 0.3 % (0-2.0); EOS % 3.1 % (0-4.5); LYMPH % 31.7 % (8-40); MCH 29.2 pg (25.7-33.7); MCHC 32.5 g/dl (32.0-36.0); MEAN CELL VOLUME 89.8 fl (80-96); MEAN PLT VOLUME 7.7 fl (7.5-11.1); NEUT % 55.9 % (42.8-82.8); PLATELET COUNT 240 10^3/uL (134-434); RBC 3.78 M/mm3 (3.60-5.2); RDW 13.7 % (11.6-15.6); WHITE BLOOD COUNT 5.7 K/mm3 (4.0-10.0)
[2021-09-02 13:44] LABS: INR 0.96 (0.83-1.09)
[2021-09-02 13:47] LABS: ACTIVATED PTT 29.2 SECONDS (25.2-36.5)
[2021-09-02 13:55] LABS: ALBUMIN 3.4 g/dl (3.4-5.0); BLOOD UREA NITROGEN 21.8 mg/dL (7-18); CALCIUM 9.2 mg/dL (8.5-10.1)
[2021-09-02 13:58] LABS: CREATININE 1.7 mg/dL (0.55-1.3)
[2021-09-02 14:00] LABS: BILIRUBIN,TOTAL 0.2 mg/dL (0.2-1); TOT PROT 6.2 g/dl (6.4-8.2)
[2021-09-02] MEDS ORDERED: ACETAMINOPHEN 1000 MG/100 ML BAG IVPB ONE (14:27)
[2021-09-02] MEDS ORDERED: ACETAMINOPHEN INJECTION 100 ML IVPB ONE (14:38)
[2021-09-02] MEDS: metFORMIN HCL 500 MG TABLET (FP) PO SCH (16:35)
[2021-09-02] MEDS ORDERED: metFORMIN HCL 500 MG TABLET (FP) ONE (19:31)
[2021-09-02] MEDS ORDERED: ATORVASTATIN CA 10 MG TABLET (FP) ONE (21:49)
[2021-09-02] MEDS ORDERED: CARVEDILOL 12.5 MG TABLET (FP) ONE (21:49)
[2021-09-02] MEDS ORDERED: HEPARIN NA (PORCINE) 5,000 UNITS/ML 1ML VIAL ONE (21:50)
[2021-09-02] MEDS: HEPARIN NA (PORCINE) 5,000 UNITS/ML 1ML VIAL SQ SCH (21:52)
[2021-09-02] MEDS: CARVEDILOL 12.5 MG TABLET (FP) PO SCH (21:52)
[2021-09-02] MEDS ORDERED: ATORVASTATIN CA 10 MG TABLET (FP) PO SCH (22:00)
[2021-09-02 23:46] VITALS: BMI 22.3
[2021-09-03] MEDS: metFORMIN HCL 500 MG TABLET (FP) PO SCH ×2 (06:07→17:34)
[2021-09-03] MEDS ORDERED: CHOLECALCIFEROL (VIT D3) 1,000 UNIT (25 MCG) TABLET PO SCH (10:00)
[2021-09-03] MEDS ORDERED: MAGNESIUM OXIDE 400 MG TABLET (FP) PO SCH (10:00)
[2021-09-03] MEDS ORDERED: ASPIRIN COATED 81 MG TABLET.EC PO SCH (10:00)
[2021-09-03] MEDS ORDERED: LOSARTAN POTASSIUM 50 MG TABLET PO SCH (10:00)
[2021-09-03] MEDS ORDERED: SPIRONOLACTONE 25 MG TABLET PO SCH (10:00)
[2021-09-03] MEDS: HEPARIN NA (PORCINE) 5,000 UNITS/ML 1ML VIAL SQ SCH (11:48)
[2021-09-03] MEDS: CARVEDILOL 12.5 MG TABLET (FP) PO SCH (11:49)
[2021-09-03 12:07] LABS: CALCIUM 9.2 mg/dL (8.5-10.1)
[2021-09-03 12:08] LABS: BLOOD UREA NITROGEN 21.6 mg/dL (7-18)
[2021-09-03 12:11] LABS: CREATININE 1.5 mg/dL (0.55-1.3)
[2021-09-03 15:04] VITALS: BP 136/62; PULSE 73; TEMP 98.4
[2021-09-03 18:11] LABS: EPI CELLS 3 /uL (0-25.1); HYALINE CASTS 3 /uL (0-3.1); PH,URINE 6.5 (5.0-8.0); URINE APPEARANCE CLEAR; URINE BACTERIA 164 /uL (0-1359); URINE BILIRUBIN NEGATIVE (NEGATIVE); URINE COLOR YELLOW; URINE GLUCOSE (UA) NEGATIVE (NEGATIVE); URINE KETONE NEGATIVE (NEGATIVE); URINE LEUK ESTERASE 3+ (NEGATIVE); URINE NITRITE NEGATIVE (NEGATIVE); URINE PROTEIN NEGATIVE (NEGATIVE); URINE RBC 7 /uL (0-23.9); URINE UROBILINOGEN 0.2 mg/dL (0.2-1.0); URINE WBC 401 /uL (0-25.8)
== END 2021-09-03 18:49 | disposition home or self-care (01) ==
LOC: JER 11:09 → UNDOADMOB 13:47 → JERBED 13:47 → OBSVTOIN 14:18 → INTOOBSV 14:18 → J4W 23:08 → JERBED 23:08 → J4W 09-03 12:08
PROVIDERS: ADMIT Internal Medicine; ATTEND Internal Medicine
PROC: 3E033NZ Introduction of Analgesics, Hypnotics, Sedatives into Peripheral Vein, Percutaneous Approach (ICD-10-PCS; principal; 2021-09-03)
PROC: 3E023GC Introduction of Other Therapeutic Substance into Muscle, Percutaneous Approach (ICD-10-PCS; 2021-09-03)
DX: I11.0 Hypertensive heart disease with heart failure (principal); R07.89 Other chest pain; G70.00 Myasthenia gravis without (acute) exacerbation; Z87.891 Personal history of nicotine dependence; E11.9 Type 2 diabetes mellitus without complications; I50.9 Heart failure, unspecified; E78.00 Pure hypercholesterolemia, unspecified; Z95.1 Presence of aortocoronary bypass graft; Z91.040 Latex allergy status; Z88.6 Allergy status to analgesic agent; Z88.0 Allergy status to penicillin; Z91.013 Allergy to seafood
CPT/HCPCS: 36415; 71045-TC-FY; 71250-TC; 73030-TC-LT-FY; 76775-TC; 80048; 80053; 81003; 82550; 82570; 82962; 83516; 84156; 84300; 84484; 84540; 85025; 85610; 85730; 93005; 93010; 96372; 96374; 99285-25; C9803-CS; G0378; J1644; U0003; U0005

== ENCOUNTER 2022-01-07 19:37 | Emergency (ER) | payer OTHER ==
[2022-01-07] MEDS ORDERED: DIPHTH,PERTUSS(ACELL),TET 0.5 ML DISP.SYRIN IM ONE ×2 (19:46→19:56)
[2022-01-07 19:47] VITALS: BP 149/60; PULSE 82; RESP 17; TEMP 98.8; BMI 21.2
[2022-01-07] MEDS ORDERED: CEFPODOXIME PROXETIL 100 MG TABLET PO ONE ×2 (19:49→19:57)
[2022-01-07] MEDS ORDERED: DOXYCYCLINE HYCLATE 100 MG CAPSULE PO ONE ×2 (20:06→20:14)
== END 2022-01-07 20:24 | disposition home or self-care (01) ==
LOC: FER 19:37
PROC: 3E0234Z Introduction of Serum, Toxoid and Vaccine into Muscle, Percutaneous Approach (ICD-10-PCS; principal; 2022-01-07)
DX: S71.152A Open bite, left thigh, initial encounter (principal); W54.0XXA Bitten by dog, initial encounter
CPT/HCPCS: 90471; 90715; 99283-25

== ENCOUNTER 2022-09-14 09:28 | Inpatient (IN) | payer OTHER ==
[2022-09-14 10:35] LABS: BASO % 0.6 % (0-2.0); EOS % 1.3 % (0-4.5); HEMATOCRIT 17.2 % (32.4-45.2); LYMPH % 29.6 % (8-40); MCHC 29.5 g/dl (32.0-36.0); MEAN CELL VOLUME 64.1 fl (80-96); MEAN PLT VOLUME 7.7 fl (7.5-11.1); MONO % 10.2 % (3.8-10.2); NEUT % 58.3 % (42.8-82.8); PLATELET COUNT 336 10^3/uL (134-434); RBC 2.69 M/mm3 (3.60-5.2); RDW 17.1 % (11.6-15.6)
[2022-09-14 10:36] LABS: MCH 18.9 pg (25.7-33.7)
[2022-09-14 10:37] LABS: HEMOGLOBIN 5.1 GM/dL (10.7-15.3)
[2022-09-14 10:50] LABS: POTASSIUM 4.1 mmol/L (3.5-5.1)
[2022-09-14 10:52] LABS: CALCIUM 8.7 mg/dL (8.5-10.1)
[2022-09-14 10:53] LABS: ALBUMIN 3.2 g/dl (3.4-5.0); BLOOD UREA NITROGEN 22.9 mg/dL (7-18); MAGNESIUM 1.4 mg/dL (1.8-2.4)
[2022-09-14 10:55] LABS: CREATININE 1.4 mg/dL (0.55-1.3)
[2022-09-14 10:57] LABS: BILIRUBIN,TOTAL 0.3 mg/dL (0.2-1); TOT PROT 6.3 g/dl (6.4-8.2)
[2022-09-14 11:12] LABS: ANISOCYTOSIS 1+; MACROCYTOSIS 0
[2022-09-14 12:12] LABS: RETICULOCYTES 1.34 % (0.5-1.5)
[2022-09-14] MEDS: PANTOPRAZOLE 40 MG TABLET PO SCH (20:22)
[2022-09-14] MEDS ORDERED: INSULIN (NOVOLOG) ASPART 100 UNITS/ML 10ML VIAL ONE (21:11)
[2022-09-14] MEDS: CARVEDILOL 12.5 MG TABLET (FP) PO SCH (21:21)
[2022-09-14] MEDS: ATORVASTATIN CA 10 MG TABLET (FP) PO SCH (21:22)
[2022-09-14] MEDS: INSULIN SLIDING SCALE (NOVOLOG) 1 VIAL SQ SCH (21:27)
[2022-09-14] MEDS ORDERED: PATIENT'S OWN MEDICATION (NON-FORMULARY) (Metformin Hcl [Glucophage] 1,000 MG Tablet) PO SCH (22:00)
[2022-09-15] MEDS: INSULIN SLIDING SCALE (NOVOLOG) 1 VIAL SQ SCH ×4 (06:12→21:42)
[2022-09-15 07:00] LABS: BASO % 0.7 % (0-2.0); EOS % 1.8 % (0-4.5); HEMOGLOBIN 8.4 GM/dL (10.7-15.3); LYMPH % 31.7 % (8-40); MCH 22.7 pg (25.7-33.7); MCHC 32.3 g/dl (32.0-36.0); MEAN CELL VOLUME 70.2 fl (80-96); MEAN PLT VOLUME 7.8 fl (7.5-11.1); MONO % 10.5 % (3.8-10.2); NEUT % 55.3 % (42.8-82.8); PLATELET COUNT 284 10^3/uL (134-434); RBC 3.71 M/mm3 (3.60-5.2); RDW 20.8 % (11.6-15.6); WHITE BLOOD COUNT 5.5 K/mm3 (4.0-10.0)
[2022-09-15 07:18] LABS: POTASSIUM 4.2 mmol/L (3.5-5.1)
[2022-09-15 07:22] LABS: ALBUMIN 3.1 g/dl (3.4-5.0); CALCIUM 8.6 mg/dL (8.5-10.1)
[2022-09-15 07:25] LABS: CREATININE 1.2 mg/dL (0.55-1.3)
[2022-09-15 07:27] LABS: BILIRUBIN,TOTAL 1.9 mg/dL (0.2-1)
[2022-09-15 07:30] LABS: TOT PROT 5.7 g/dl (6.4-8.2)
[2022-09-15] MEDS: MAGNESIUM OXIDE 400 MG TABLET (FP) PO SCH (10:59)
[2022-09-15] MEDS: PANTOPRAZOLE 40 MG TABLET PO SCH (10:59)
[2022-09-15] MEDS: CARVEDILOL 12.5 MG TABLET (FP) PO SCH ×2 (10:59→21:42)
[2022-09-15] MEDS: SPIRONOLACTONE 25 MG TABLET PO SCH (10:59)
[2022-09-15] MEDS: ASPIRIN COATED 81 MG TABLET.EC PO SCH (10:59)
[2022-09-15] MEDS: LOSARTAN POTASSIUM 50 MG TABLET PO SCH (10:59)
[2022-09-15] MEDS: CHOLECALCIFEROL (VIT D3) 1,000 UNIT (25 MCG) TABLET PO SCH (10:59)
[2022-09-15] MEDS ORDERED: PEG 3350/NA SULF BICARB CL/KCL 4000 ML SOLN.RECON PO ONE (11:00)
[2022-09-15 11:10] LABS: BILIRUBIN,DIRECT 0.4 mg/dL (0.0-0.2)
[2022-09-15] MEDS ORDERED: INSULIN (NOVOLOG) ASPART 100 UNITS/ML 10ML VIAL ONE (11:31)
[2022-09-15] MEDS: FERROUS SO4 325 MG TABLET (FP) PO SCH (14:12)
[2022-09-15] MEDS: MULTIVITAMINS (DAILY MVI) TABLET (FP) PO SCH (14:13)
[2022-09-15] MEDS ORDERED: BISACODYL 5 MG TABLET.DR (FP) PO ONE (20:00)
[2022-09-15] MEDS: ATORVASTATIN CA 10 MG TABLET (FP) PO SCH (21:42)
[2022-09-16] MEDS: INSULIN SLIDING SCALE (NOVOLOG) 1 VIAL SQ SCH ×4 (06:29→22:12)
[2022-09-16 08:21] LABS: BASO % 0.5 % (0-2.0); EOS % 2.4 % (0-4.5); HEMATOCRIT 25.3 % (32.4-45.2); HEMOGLOBIN 8.4 GM/dL (10.7-15.3); LYMPH % 31.6 % (8-40); MCH 23.4 pg (25.7-33.7); MCHC 33.2 g/dl (32.0-36.0); MEAN CELL VOLUME 70.3 fl (80-96); MEAN PLT VOLUME 8.3 fl (7.5-11.1); MONO % 10.2 % (3.8-10.2); NEUT % 55.3 % (42.8-82.8); PLATELET COUNT 283 10^3/uL (134-434); RDW 21.4 % (11.6-15.6); WHITE BLOOD COUNT 5.2 K/mm3 (4.0-10.0)
[2022-09-16 08:29] LABS: INR 1.12 (0.83-1.09)
[2022-09-16 08:39] LABS: POTASSIUM 4.3 mmol/L (3.5-5.1)
[2022-09-16 08:52] LABS: CALCIUM 9.2 mg/dL (8.5-10.1)
[2022-09-16 08:53] LABS: BLOOD UREA NITROGEN 14.4 mg/dL (7-18)
[2022-09-16 08:55] LABS: CREATININE 1.3 mg/dL (0.55-1.3); TOT PROT 5.4 g/dl (6.4-8.2)
[2022-09-16 08:56] LABS: BILIRUBIN,TOTAL 0.8 mg/dL (0.2-1)
[2022-09-16] MEDS: SPIRONOLACTONE 25 MG TABLET PO SCH (09:37)
[2022-09-16] MEDS: CARVEDILOL 12.5 MG TABLET (FP) PO SCH ×2 (09:37→22:11)
[2022-09-16] MEDS: LOSARTAN POTASSIUM 50 MG TABLET PO SCH (09:37)
[2022-09-16] MEDS: PANTOPRAZOLE 40 MG TABLET PO SCH ×2 (09:37→22:11)
[2022-09-16] MEDS: CHOLECALCIFEROL (VIT D3) 1,000 UNIT (25 MCG) TABLET PO SCH (10:00)
[2022-09-16] MEDS: MAGNESIUM OXIDE 400 MG TABLET (FP) PO SCH (10:00)
[2022-09-16] MEDS: MULTIVITAMINS (DAILY MVI) TABLET (FP) PO SCH (10:00)
[2022-09-16] MEDS: ASPIRIN COATED 81 MG TABLET.EC PO SCH (11:52)
[2022-09-16] MEDS ORDERED: KETAMINE HCL 500 MG/10 ML VIAL ONE (12:57)
[2022-09-16] MEDS ORDERED: TETRACAINE/BENZOCAINE/BUTAMBEN 20 GM SPR TP ONE (12:57)
[2022-09-16 16:15] VITALS: BMI 19.7
[2022-09-16] MEDS: FERROUS SO4 325 MG TABLET (FP) PO SCH (16:57)
[2022-09-16] MEDS ORDERED: IRON SUCROSE INJECTION 200 MG in SODIUM CHLORIDE 90 ML IVPB ONE (17:00)
[2022-09-16] MEDS: POLYETHYLENE GLYCOL (HEALTHYLAX) 3350 17 GM PACKET PO SCH (22:11)
[2022-09-16] MEDS: ATORVASTATIN CA 10 MG TABLET (FP) PO SCH (22:11)
[2022-09-17] MEDS: INSULIN SLIDING SCALE (NOVOLOG) 1 VIAL SQ SCH ×4 (06:32→21:35)
[2022-09-17 08:19] LABS: BASO % 0.3 % (0-2.0); EOS % 0.7 % (0-4.5); HEMATOCRIT 23.5 % (32.4-45.2); HEMOGLOBIN 7.8 GM/dL (10.7-15.3); LYMPH % 8.6 % (8-40); MCH 23.3 pg (25.7-33.7); MCHC 33.2 g/dl (32.0-36.0); MEAN CELL VOLUME 70.3 fl (80-96); MEAN PLT VOLUME 8.4 fl (7.5-11.1); NEUT % 83.4 % (42.8-82.8); PLATELET COUNT 248 10^3/uL (134-434); RBC 3.34 M/mm3 (3.60-5.2); RDW 22.7 % (11.6-15.6); RETICULOCYTES 1.56 % (0.5-1.5); WHITE BLOOD COUNT 8.4 K/mm3 (4.0-10.0)
[2022-09-17 08:25] LABS: POTASSIUM 4.1 mmol/L (3.5-5.1)
[2022-09-17 08:28] LABS: ALBUMIN 2.7 g/dl (3.4-5.0); BLOOD UREA NITROGEN 15.3 mg/dL (7-18); CALCIUM 8.3 mg/dL (8.5-10.1)
[2022-09-17 08:31] LABS: CREATININE 1.5 mg/dL (0.55-1.3)
[2022-09-17 08:36] LABS: INR 1.13 (0.83-1.09); PROTHROMBIN TIME (PATIENT) 13.1 SEC (9.7-13.0)
[2022-09-17 08:38] LABS: BILIRUBIN,TOTAL 0.9 mg/dL (0.2-1)
[2022-09-17] MEDS: PANTOPRAZOLE 40 MG TABLET PO SCH ×2 (09:42→21:28)
[2022-09-17] MEDS: MULTIVITAMINS (DAILY MVI) TABLET (FP) PO SCH (09:42)
[2022-09-17] MEDS: CHOLECALCIFEROL (VIT D3) 1,000 UNIT (25 MCG) TABLET PO SCH (09:42)
[2022-09-17] MEDS: CARVEDILOL 12.5 MG TABLET (FP) PO SCH ×2 (09:42→21:28)
[2022-09-17] MEDS: LOSARTAN POTASSIUM 50 MG TABLET PO SCH (09:42)
[2022-09-17] MEDS: MAGNESIUM OXIDE 400 MG TABLET (FP) PO SCH (09:42)
[2022-09-17] MEDS: ASPIRIN COATED 81 MG TABLET.EC PO SCH (09:42)
[2022-09-17] MEDS: SPIRONOLACTONE 25 MG TABLET PO SCH (09:42)
[2022-09-17] MEDS: POLYETHYLENE GLYCOL (HEALTHYLAX) 3350 17 GM PACKET PO SCH ×2 (09:43→21:28)
[2022-09-17] MEDS ORDERED: INSULIN (NOVOLOG) ASPART 100 UNITS/ML 10ML VIAL ONE (21:07)
[2022-09-17] MEDS: ATORVASTATIN CA 10 MG TABLET (FP) PO SCH (21:28)
[2022-09-18] MEDS: INSULIN SLIDING SCALE (NOVOLOG) 1 VIAL SQ SCH ×2 (06:29→11:13)
[2022-09-18] MEDS ORDERED: INSULIN (LEVEMIR) 100 UNITS/ML UNITS SQ ONE (06:52)
[2022-09-18] MEDS ORDERED: INSULIN (NOVOLOG) ASPART 100 UNITS/ML 10ML VIAL ONE ×2 (06:52→11:12)
[2022-09-18] MEDS: MULTIVITAMINS (DAILY MVI) TABLET (FP) PO SCH (09:29)
[2022-09-18] MEDS: POLYETHYLENE GLYCOL (HEALTHYLAX) 3350 17 GM PACKET PO SCH (09:29)
[2022-09-18] MEDS: LOSARTAN POTASSIUM 50 MG TABLET PO SCH (09:30)
[2022-09-18] MEDS: ASPIRIN COATED 81 MG TABLET.EC PO SCH (09:30)
[2022-09-18] MEDS: CARVEDILOL 12.5 MG TABLET (FP) PO SCH (09:30)
[2022-09-18] MEDS: CHOLECALCIFEROL (VIT D3) 1,000 UNIT (25 MCG) TABLET PO SCH (09:30)
[2022-09-18] MEDS: PANTOPRAZOLE 40 MG TABLET PO SCH (09:30)
[2022-09-18] MEDS: SPIRONOLACTONE 25 MG TABLET PO SCH (09:30)
[2022-09-18] MEDS: MAGNESIUM OXIDE 400 MG TABLET (FP) PO SCH (09:31)
[2022-09-18 09:32] LABS: BASO % 0.3 % (0-2.0); HEMATOCRIT 29.6 % (32.4-45.2); HEMOGLOBIN 9.8 GM/dL (10.7-15.3); LYMPH % 17.1 % (8-40); MCH 24.1 pg (25.7-33.7); MCHC 33.2 g/dl (32.0-36.0); MEAN CELL VOLUME 72.6 fl (80-96); MEAN PLT VOLUME 8.5 fl (7.5-11.1); MONO % 10.6 % (3.8-10.2); PLATELET COUNT 267 10^3/uL (134-434); RBC 4.08 M/mm3 (3.60-5.2); RDW 22.5 % (11.6-15.6); WHITE BLOOD COUNT 5.6 K/mm3 (4.0-10.0)
[2022-09-18 09:54] LABS: POTASSIUM 4.2 mmol/L (3.5-5.1)
[2022-09-18 09:59] LABS: CALCIUM 8.8 mg/dL (8.5-10.1)
[2022-09-18 10:00] LABS: BLOOD UREA NITROGEN 20.7 mg/dL (7-18)
[2022-09-18 10:03] LABS: CREATININE 1.6 mg/dL (0.55-1.3)
[2022-09-18 10:04] LABS: BILIRUBIN,TOTAL 1.2 mg/dL (0.2-1)
[2022-09-18 10:05] LABS: TOT PROT 5.7 g/dl (6.4-8.2)
[2022-09-18 12:35] LABS: ANISOCYTOSIS 2+; MACROCYTOSIS 0; OVALOCYTE 2+
[2022-09-18 13:17] VITALS: BP 143/66; TEMP 98
[2022-09-18 15:07] VITALS: PULSE 67; RESP 17
== END 2022-09-18 15:52 | disposition home or self-care (01) | DRG 375 ==
LOC: JER 09:28 → JERBED 11:32 → J7W 12:49
PROVIDERS: ADMIT Internal Medicine; ATTEND Internal Medicine
PROC: 30233N1 Transfusion of Nonautologous Red Blood Cells into Peripheral Vein, Percutaneous Approach (ICD-10-PCS; principal; 2022-09-14)
PROC: 0DBL8ZX Excision of Transverse Colon, Via Natural or Artificial Opening Endoscopic, Diagnostic (ICD-10-PCS; 2022-09-16)
PROC: 0W3P8ZZ Control Bleeding in Gastrointestinal Tract, Via Natural or Artificial Opening Endoscopic (ICD-10-PCS; 2022-09-16)
PROC: 3E0H8GC Introduction of Other Therapeutic Substance into Lower GI, Via Natural or Artificial Opening Endoscopic (ICD-10-PCS; 2022-09-16)
PROC: 0DB98ZX Excision of Duodenum, Via Natural or Artificial Opening Endoscopic, Diagnostic (ICD-10-PCS; 2022-09-16)
PROC: 0DB68ZX Excision of Stomach, Via Natural or Artificial Opening Endoscopic, Diagnostic (ICD-10-PCS; 2022-09-16)
DX: C18.0 Malignant neoplasm of cecum (principal); I13.0 Hypertensive heart and chronic kidney disease with heart failure and stage 1 through stage 4 chronic kidney disease, or unspecified chronic kidney disease; I50.22 Chronic systolic (congestive) heart failure; Z68.1 Body mass index [BMI] 19.9 or less, adult; K25.3 Acute gastric ulcer without hemorrhage or perforation; D50.9 Iron deficiency anemia, unspecified; I25.5 Ischemic cardiomyopathy; E78.5 Hyperlipidemia, unspecified; G70.00 Myasthenia gravis without (acute) exacerbation; E11.22 Type 2 diabetes mellitus with diabetic chronic kidney disease; N18.9 Chronic kidney disease, unspecified; D12.3 Benign neoplasm of transverse colon; E11.51 Type 2 diabetes mellitus with diabetic peripheral angiopathy without gangrene; H35.30 Unspecified macular degeneration; I25.119 Atherosclerotic heart disease of native coronary artery with unspecified angina pectoris; I34.0 Nonrheumatic mitral (valve) insufficiency; R63.4 Abnormal weight loss; K63.89 Other specified diseases of intestine; K44.9 Diaphragmatic hernia without obstruction or gangrene; K64.8 Other hemorrhoids; K29.80 Duodenitis without bleeding; Z95.1 Presence of aortocoronary bypass graft
CPT/HCPCS: 0241U-QW; 36415; 36430; 71046-TC-FY; 71250-TC; 74177-TC; 80053; 82248; 82272; 82378; 82728; 82962; 83010; 83540; 83550; 83615; 83735; 84466; 84484; 85025; 85045; 85610; 86140; 86850; 86900; 86901; 86922; 88305-TC; 93005; 93010; 99285-25; J1756; P9058; Q9967

== ENCOUNTER 2022-09-30 11:33 | Inpatient (IN) | payer OTHER ==
[~2022-09-30 11:33] MED LIST: ACETAMINOPHEN 1000 MG/100 ML BAG IVPB ONE
[2022-10-14] MEDS ORDERED: GABAPENTIN 300 MG CAPSULE ONE (06:25)
[2022-10-14] MEDS ORDERED: GABAPENTIN 300 MG CAPSULE PO ONE ×2 (07:00→15:00)
[2022-10-14] MEDS ORDERED: BUPIVACAINE HCL/PF 0.25% (2.5MG/ML) 10 ML VIAL ONE (07:36)
[2022-10-14] MEDS ORDERED: HEPARIN NA (PORCINE) 5,000 UNITS/ML 1ML VIAL ONE (07:37)
[2022-10-14] MEDS ORDERED: INDOCYANINE GREEN 25 MG/10 ML VIAL IVPUSH ONE (07:37)
[2022-10-14] MEDS ORDERED: ROCURONIUM BROMIDE 50 MG/5 ML SYRINGE ONE ×2 (07:48→10:57)
[2022-10-14] MEDS ORDERED: SUCCINYLCHOLINE CHLORIDE 200 MG/10 ML SYRINGE ONE (07:49)
[2022-10-14] MEDS ORDERED: PROPOFOL 20 ML ONE ×3 (07:49→11:17)
[2022-10-14] MEDS ORDERED: MIDAZOLAM HCL 2 MG/2 ML SINGLE DOSE VIAL ONE (07:49)
[2022-10-14] MEDS ORDERED: ePHEDrine SULFATE 50 MG/1 ML AMPULE ONE (08:30)
[2022-10-14] MEDS ORDERED: cefOXitin SODIUM 2 GM VIAL (RESTRICTED TO ID) IVPB ONE ×2 (08:30→15:00)
[2022-10-14] MEDS ORDERED: HEPARIN NA (PORCINE) 5,000 UNITS/ML 1ML VIAL SQ ONE (08:32)
[2022-10-14] MEDS ORDERED: SUGAMMADEX SODIUM 200 MG/2 ML VIAL ONE (11:07)
[2022-10-14] MEDS ORDERED: GLYCOPYRROLATE 0.2 MG/1 ML VIAL ONE ×2 (11:19→11:39)
[2022-10-14] MEDS ORDERED: LIDOCAINE HCL/PF 2% SDV 5ML VIAL ONE (11:19)
[2022-10-14] MEDS ORDERED: ONDANSETRON 4 MG/2 ML VIAL ONE ×2 (11:19→11:39)
[2022-10-14] MEDS ORDERED: NEOSTIGMINE METHYLSULFATE 0.5 MG/1 ML - 10 ML MDV ONE (11:40)
[2022-10-14] MEDS ORDERED: BACLOFEN 10 MG TABLET (FP) PO PRN (12:26)
[2022-10-14] MEDS ORDERED: ESCITALOPRAM OXALATE 10 MG TABLET PO PRN (12:32)
[2022-10-14] MEDS ORDERED: ONDANSETRON 4 MG/2 ML VIAL IVPUSH PRN (13:10)
[2022-10-14] MEDS ORDERED: LACTATED RINGERS SOLUTION 1,000 ML IV SCH (13:15)
[2022-10-14] MEDS ORDERED: SCOPOLAMINE HYDROBROMIDE 1 PATCH PATCH.TD72 TD ONE (15:00)
[2022-10-14] MEDS ORDERED: ACETAMINOPHEN 1000 MG/100 ML BAG IVPB ONE (15:00)
[2022-10-14] MEDS: SODIUM CHLORIDE 1,000 ML IV SCH (15:51)
[2022-10-14] MEDS: INSULIN SLIDING SCALE (NOVOLOG) 1 VIAL SQ SCH ×2 (16:13→21:26)
[2022-10-14] MEDS: ACETAMINOPHEN 1000 MG/100 ML BAG IVPB SCH (17:27)
[2022-10-14] MEDS: PYRIDOSTIGMINE BROMIDE 60 MG TABLET PO SCH ×2 (18:19→22:50)
[2022-10-14 18:56] LABS: EPI CELLS 5 /uL (0-25.1); HYALINE CASTS 1 /uL (0-3.1); PH,URINE 5.5 (5.0-8.0); URINE APPEARANCE CLEAR; URINE BACTERIA 2 /uL (0-1359); URINE BILIRUBIN NEGATIVE (NEGATIVE); URINE COLOR YELLOW; URINE GLUCOSE (UA) NEGATIVE (NEGATIVE); URINE KETONE TRACE (NEGATIVE); URINE LEUK ESTERASE NEGATIVE (NEGATIVE); URINE NITRITE NEGATIVE (NEGATIVE); URINE PROTEIN TRACE (NEGATIVE); URINE RBC 386 /uL (0-23.9); URINE UROBILINOGEN 0.2 mg/dL (0.2-1.0); URINE WBC 8 /uL (0-25.8)
[2022-10-14] MEDS: CEFOXITIN SODIUM 2 GM in DEXTROSE 5%-WATER - 100 ML IVPB SCH (21:08)
[2022-10-14] MEDS: MUPIROCIN 2% TOPICAL OINTMENT FOR DECOLONIZATION NS SCH (21:10)
[2022-10-14] MEDS: ATORVASTATIN CA 10 MG TABLET (FP) PO SCH (21:10)
[2022-10-14] MEDS: CHLORHEXIDINE GLUCONATE 4% CLEANSER FOR DECOLONIZATION TP SCH (21:11)
[2022-10-14] MEDS: CARVEDILOL 6.25 MG TABLET (FP) PO SCH (21:11)
[2022-10-14] MEDS ORDERED: INSULIN (NOVOLOG) ASPART 100 UNITS/ML 10ML VIAL ONE (21:26)
[2022-10-14] MEDS ORDERED: MUPIROCIN 2% TOPICAL OINTMENT FOR DECOLONIZATION NS SCH (22:00)
[2022-10-14] MEDS ORDERED: LOSARTAN POTASSIUM 25 MG TABLET PO SCH (22:00)
[2022-10-14] MEDS ORDERED: CHLORHEXIDINE GLUCONATE 4% CLEANSER FOR DECOLONIZATION TP SCH (22:00)
[2022-10-15] MEDS: ACETAMINOPHEN 1000 MG/100 ML BAG IVPB SCH ×3 (00:07→12:37)
[2022-10-15] MEDS: CEFOXITIN SODIUM 2 GM in DEXTROSE 5%-WATER - 100 ML IVPB SCH ×3 (02:22→14:53)
[2022-10-15] MEDS: SODIUM CHLORIDE 1,000 ML IV SCH (02:23)
[2022-10-15] MEDS: INSULIN SLIDING SCALE (NOVOLOG) 1 VIAL SQ SCH ×4 (06:52→22:18)
[2022-10-15] MEDS: PYRIDOSTIGMINE BROMIDE 60 MG TABLET PO SCH ×3 (06:53→21:30)
[2022-10-15 06:55] LABS: BASO % 0.3 % (0-2.0); EOS % 1.6 % (0-4.5); HEMATOCRIT 28.8 % (32.4-45.2); HEMOGLOBIN 9.1 GM/dL (10.7-15.3); LYMPH % 15.5 % (8-40); MCH 25.4 pg (25.7-33.7); MCHC 31.4 g/dl (32.0-36.0); MEAN CELL VOLUME 80.7 fl (80-96); MEAN PLT VOLUME 8.2 fl (7.5-11.1); MONO % 8.3 % (3.8-10.2); NEUT % 74.3 % (42.8-82.8); PLATELET COUNT 173 10^3/uL (134-434); RBC 3.57 M/mm3 (3.60-5.2); RDW 25.8 % (11.6-15.6)
[2022-10-15 07:02] LABS: INR 1.11 (0.83-1.09); PROTHROMBIN TIME (PATIENT) 12.9 SEC (9.7-13.0)
[2022-10-15 07:16] LABS: ALBUMIN 2.4 g/dl (3.4-5.0); BLOOD UREA NITROGEN 12.8 mg/dL (7-18)
[2022-10-15 07:17] LABS: MAGNESIUM 1.2 mg/dL (1.8-2.4)
[2022-10-15 07:20] LABS: CREATININE 2.1 mg/dL (0.55-1.3); PHOSPHOROUS 3.4 mg/dL (2.5-4.9)
[2022-10-15 07:21] LABS: BILIRUBIN,TOTAL 0.5 mg/dL (0.2-1); TOT PROT 4.6 g/dl (6.4-8.2)
[2022-10-15] MEDS ORDERED: PYRIDOSTIGMINE BROMIDE 60 MG TABLET PO SCH (07:30)
[2022-10-15 07:39] LABS: CALCIUM 7.8 mg/dL (8.5-10.1)
[2022-10-15] MEDS ORDERED: MAGNESIUM 2GM/50ML STERILE WATER IVPB IVPB ONE (07:45)
[2022-10-15] MEDS: SPIRONOLACTONE 25 MG TABLET PO SCH (09:22)
[2022-10-15] MEDS: ENOXAPARIN NA (PORCINE) 30 MG/0.3 ML DISP.SYRIN SQ SCH (09:22)
[2022-10-15] MEDS: CARVEDILOL 6.25 MG TABLET (FP) PO SCH ×2 (09:22→21:29)
[2022-10-15] MEDS: MUPIROCIN 2% TOPICAL OINTMENT FOR DECOLONIZATION NS SCH ×2 (09:27→21:30)
[2022-10-15 09:48] LABS: ANISOCYTOSIS 1+; MACROCYTOSIS 0; OVALOCYTE 1+
[2022-10-15] MEDS ORDERED: ONDANSETRON 4 MG/2 ML VIAL IVPUSH PRN (10:43)
[2022-10-15 14:42] VITALS: BMI 20.1
[2022-10-15 18:43] LABS: PH,URINE 5.5 (5.0-8.0); URINE APPEARANCE CLEAR; URINE BILIRUBIN NEGATIVE (NEGATIVE); URINE COLOR YELLOW; URINE GLUCOSE (UA) NEGATIVE (NEGATIVE); URINE KETONE NEGATIVE (NEGATIVE); URINE LEUK ESTERASE NEGATIVE (NEGATIVE); URINE NITRITE NEGATIVE (NEGATIVE); URINE PROTEIN NEGATIVE (NEGATIVE); URINE UROBILINOGEN 0.2 mg/dL (0.2-1.0)
[2022-10-15] MEDS: ATORVASTATIN CA 10 MG TABLET (FP) PO SCH (21:29)
[2022-10-15] MEDS: CHLORHEXIDINE GLUCONATE 4% CLEANSER FOR DECOLONIZATION TP SCH (21:30)
[2022-10-15] MEDS: traMADol HCL 50 MG TABLET PO PRN (21:40)
[2022-10-16] MEDS: PYRIDOSTIGMINE BROMIDE 60 MG TABLET PO SCH ×3 (06:52→23:08)
[2022-10-16] MEDS: INSULIN SLIDING SCALE (NOVOLOG) 1 VIAL SQ SCH ×3 (06:54→22:20)
[2022-10-16] MEDS: SODIUM CHLORIDE 1,000 ML IV SCH ×2 (06:54→09:52)
[2022-10-16 07:53] LABS: POTASSIUM 4.2 mmol/L (3.5-5.1)
[2022-10-16 08:01] LABS: ALBUMIN 2.3 g/dl (3.4-5.0); BLOOD UREA NITROGEN 9.8 mg/dL (7-18)
[2022-10-16 08:04] LABS: CREATININE 1.3 mg/dL (0.55-1.3)
[2022-10-16 08:05] LABS: TOT PROT 4.6 g/dl (6.4-8.2)
[2022-10-16 08:06] LABS: BILIRUBIN,TOTAL 0.3 mg/dL (0.2-1)
[2022-10-16] MEDS: SPIRONOLACTONE 25 MG TABLET PO SCH (09:03)
[2022-10-16] MEDS: CARVEDILOL 6.25 MG TABLET (FP) PO SCH ×2 (09:03→22:07)
[2022-10-16] MEDS: ENOXAPARIN NA (PORCINE) 30 MG/0.3 ML DISP.SYRIN SQ SCH (09:03)
[2022-10-16] MEDS: MUPIROCIN 2% TOPICAL OINTMENT FOR DECOLONIZATION NS SCH (09:07)
[2022-10-16] MEDS: traMADol HCL 50 MG TABLET PO PRN (13:28)
[2022-10-16] MEDS ORDERED: ONDANSETRON 4 MG/2 ML VIAL IVPUSH PRN (17:09)
[2022-10-16] MEDS ORDERED: BACLOFEN 10 MG TABLET (FP) PO PRN (17:09)
[2022-10-16] MEDS: SODIUM CHLORIDE 0.45% 1,000 ML IV SCH (19:36)
[2022-10-16] MEDS ORDERED: INSULIN (NOVOLOG) ASPART 100 UNITS/ML 10ML VIAL ONE (21:18)
[2022-10-16] MEDS ORDERED: CHLORHEXIDINE GLUCONATE 4% CLEANSER FOR DECOLONIZATION TP SCH (22:00)
[2022-10-16] MEDS ORDERED: MUPIROCIN 2% TOPICAL OINTMENT FOR DECOLONIZATION NS SCH (22:00)
[2022-10-16] MEDS: ATORVASTATIN CA 10 MG TABLET (FP) PO SCH (22:07)
[2022-10-17] MEDS: traMADol HCL 50 MG TABLET PO PRN (04:45)
[2022-10-17] MEDS: PYRIDOSTIGMINE BROMIDE 60 MG TABLET PO SCH ×3 (06:05→22:26)
[2022-10-17] MEDS: INSULIN SLIDING SCALE (NOVOLOG) 1 VIAL SQ SCH ×5 (06:59→21:22)
[2022-10-17] MEDS: CARVEDILOL 6.25 MG TABLET (FP) PO SCH ×2 (09:33→21:21)
[2022-10-17] MEDS: ENOXAPARIN NA (PORCINE) 30 MG/0.3 ML DISP.SYRIN SQ SCH (09:33)
[2022-10-17] MEDS: SPIRONOLACTONE 25 MG TABLET PO SCH (09:33)
[2022-10-17] MEDS: SODIUM CHLORIDE 0.45% 1,000 ML IV SCH (18:34)
[2022-10-17] MEDS: ATORVASTATIN CA 10 MG TABLET (FP) PO SCH (21:21)
[2022-10-18] MEDS: traMADol HCL 50 MG TABLET PO PRN (06:18)
[2022-10-18] MEDS: PYRIDOSTIGMINE BROMIDE 60 MG TABLET PO SCH ×3 (06:18→22:25)
[2022-10-18] MEDS: INSULIN SLIDING SCALE (NOVOLOG) 1 VIAL SQ SCH ×4 (06:42→21:21)
[2022-10-18 07:54] LABS: BLOOD UREA NITROGEN 6.5 mg/dL (7-18); CALCIUM 8.6 mg/dL (8.5-10.1)
[2022-10-18 07:56] LABS: CREATININE 1.1 mg/dL (0.55-1.3)
[2022-10-18 08:20] LABS: POTASSIUM 4.2 mmol/L (3.5-5.1)
[2022-10-18] MEDS: CARVEDILOL 6.25 MG TABLET (FP) PO SCH ×2 (09:49→21:09)
[2022-10-18] MEDS: SPIRONOLACTONE 25 MG TABLET PO SCH (09:49)
[2022-10-18] MEDS: ENOXAPARIN NA (PORCINE) 30 MG/0.3 ML DISP.SYRIN SQ SCH (09:49)
[2022-10-18 13:30] LABS: BASO % 0.5 % (0-2.0); EOS % 4.4 % (0-4.5); HEMATOCRIT 29.9 % (32.4-45.2); HEMOGLOBIN 9.4 GM/dL (10.7-15.3); LYMPH % 21.6 % (8-40); MCH 25.3 pg (25.7-33.7); MCHC 31.4 g/dl (32.0-36.0); MEAN CELL VOLUME 80.6 fl (80-96); MEAN PLT VOLUME 8.8 fl (7.5-11.1); MONO % 7.5 % (3.8-10.2); PLATELET COUNT 232 10^3/uL (134-434); RBC 3.71 M/mm3 (3.60-5.2); RDW 25.3 % (11.6-15.6); WHITE BLOOD COUNT 5.8 K/mm3 (4.0-10.0)
[2022-10-18 13:42] LABS: CALCIUM 8.7 mg/dL (8.5-10.1)
[2022-10-18 13:43] LABS: ALBUMIN 2.6 g/dl (3.4-5.0); BLOOD UREA NITROGEN 6.6 mg/dL (7-18)
[2022-10-18 13:47] LABS: CREATININE 1.2 mg/dL (0.55-1.3)
[2022-10-18 13:49] LABS: BILIRUBIN,TOTAL 0.4 mg/dL (0.2-1); TOT PROT 5.5 g/dl (6.4-8.2)
[2022-10-18 14:19] LABS: ANISOCYTOSIS 3+; MACROCYTOSIS 0; OVALOCYTE 1+
[2022-10-18] MEDS ORDERED: INSULIN (NOVOLOG) ASPART 100 UNITS/ML 10ML VIAL ONE (17:24)
[2022-10-18] MEDS: ATORVASTATIN CA 10 MG TABLET (FP) PO SCH (21:09)
[2022-10-19] MEDS: PYRIDOSTIGMINE BROMIDE 60 MG TABLET PO SCH ×3 (05:21→23:15)
[2022-10-19] MEDS: INSULIN SLIDING SCALE (NOVOLOG) 1 VIAL SQ SCH ×4 (08:14→21:43)
[2022-10-19] MEDS: ENOXAPARIN NA (PORCINE) 30 MG/0.3 ML DISP.SYRIN SQ SCH (09:32)
[2022-10-19] MEDS: SPIRONOLACTONE 25 MG TABLET PO SCH (09:32)
[2022-10-19] MEDS: CARVEDILOL 6.25 MG TABLET (FP) PO SCH ×2 (09:32→21:25)
[2022-10-19 20:43] VITALS: RESP 18
[2022-10-19] MEDS: ATORVASTATIN CA 10 MG TABLET (FP) PO SCH (21:25)
[2022-10-20] MEDS: PYRIDOSTIGMINE BROMIDE 60 MG TABLET PO SCH (05:28)
[2022-10-20 05:31] VITALS: BP 155/54; PULSE 72; TEMP 98.2
[2022-10-20] MEDS: INSULIN SLIDING SCALE (NOVOLOG) 1 VIAL SQ SCH ×2 (07:09→12:13)
[2022-10-20] MEDS: SPIRONOLACTONE 25 MG TABLET PO SCH (09:13)
[2022-10-20] MEDS: CARVEDILOL 6.25 MG TABLET (FP) PO SCH (09:13)
[2022-10-20] MEDS: ENOXAPARIN NA (PORCINE) 30 MG/0.3 ML DISP.SYRIN SQ SCH (09:13)
== END 2022-10-20 13:48 | disposition home health service (06) | DRG 330 ==
LOC: J2C 10-14 03:54 → JICU 10-14 15:39 → J8W 10-16 16:34
PROVIDERS: ADMIT Surgery; ATTEND Internal Medicine
PROC: 8E0W4CZ Robotic Assisted Procedure of Trunk Region, Percutaneous Endoscopic Approach (ICD-10-PCS; 2022-10-14)
PROC: 0DTF4ZZ Resection of Right Large Intestine, Percutaneous Endoscopic Approach (ICD-10-PCS; principal; 2022-10-14 08:00)
DX: C18.0 Malignant neoplasm of cecum (principal); N17.9 Acute kidney failure, unspecified; I25.5 Ischemic cardiomyopathy; I10 Essential (primary) hypertension; E11.9 Type 2 diabetes mellitus without complications; G70.00 Myasthenia gravis without (acute) exacerbation; I25.10 Atherosclerotic heart disease of native coronary artery without angina pectoris; Z95.1 Presence of aortocoronary bypass graft; N18.9 Chronic kidney disease, unspecified
CPT/HCPCS: 36415; 80048; 80053; 81003; 82436; 82570; 82962; 83735; 84100; 84133; 84300; 84443; 85025; 85610; 86140; 87635; 88309-TC; 88329; 93005; 93010; 94760; 97116-GP; 97162-GP; J1644

== ENCOUNTER 2022-12-30 09:59 | Emergency (ER) | payer OTHER ==
[2022-12-30 10:12] VITALS: BP 183/69; PULSE 70; RESP 10; TEMP 98; BMI 19.8
[2022-12-30 10:50] LABS: HEMATOCRIT 34.6 % (32.4-45.2); HEMOGLOBIN 11.3 G/dL (10.7-15.3); MCH 28.7 pg (25.7-33.7); MCHC 32.5 g/dl (32.0-36.0); MEAN CELL VOLUME 88.2 fl (80-96); MEAN PLT VOLUME 7.8 fl (7.5-11.1); PLATELET COUNT 271.7 10^3/uL (134-434); RBC 3.92 10^6/uL (3.60-5.2); RDW 15.7 % (11.6-15.6); WHITE BLOOD COUNT 4.9 10^3/uL (4.0-10.8)
[2022-12-30 10:53] LABS: ALBUMIN 3.8 g/dl (3.4-5.0); BLOOD UREA NITROGEN 20.8 mg/dl (7-18); CALCIUM 9.2 mg/dl (8.5-10.1); CREATININE 1.3 mg/dl (0.6-1.3); PLATELET ESTIMATE ADEQUATE; POTASSIUM 4.1 mmol/L (3.5-5.1); SGOT/AST 15.2 U/L (15-37); SGPT/ALT 9.4 U/L (7-52); TOT PROT 6.1 g/dl (6.4-8.2)
[2022-12-30 12:30] LABS: BILIRUBIN,TOTAL 0.5 mg/dL (0.2-1)
== END 2022-12-30 12:04 | disposition home or self-care (01) ==
LOC: FER 09:59
DX: R22.43 Localized swelling, mass and lump, lower limb, bilateral (principal); I12.9 Hypertensive chronic kidney disease with stage 1 through stage 4 chronic kidney disease, or unspecified chronic kidney disease; N18.9 Chronic kidney disease, unspecified
CPT/HCPCS: 36415; 80053; 85027; 93970-TC; 99284-25

== ENCOUNTER 2024-01-27 00:28 | Emergency (ER) | payer OTHER ==
[2024-01-27 00:46] VITALS: BP 133/64; PULSE 85; RESP 16; TEMP 98.1; BMI 18.8
[2024-01-27] MEDS ORDERED: ACETAMINOPHEN INJECTION 100 ML ONE (01:46)
[2024-01-27] MEDS: ACETAMINOPHEN 1000 MG/100 ML BAG IVPB ONE (01:59)
[2024-01-27 02:01] LABS: BASO % 0.2 % (0-2.0); EOS % 0.1 % (0-4.5); HEMATOCRIT 39.7 % (32.4-45.2); HEMOGLOBIN 13.2 GM/dL (10.7-15.3); LYMPH % 6.9 % (8-40); MCH 29.7 pg (25.7-33.7); MCHC 33.3 g/dl (32.0-36.0); MEAN CELL VOLUME 89.1 fl (80-96); MEAN PLT VOLUME 7.7 fl (7.5-11.1); MONO % 4.4 % (3.8-10.2); NEUT % 88.4 % (42.8-82.8); PLATELET COUNT 254 10^3/uL (134-434); RBC 4.45 M/mm3 (3.60-5.2); RDW 13.8 % (11.6-15.6); WHITE BLOOD COUNT 11.1 K/mm3 (4.0-10.0)
[2024-01-27 02:25] LABS: POTASSIUM 4.1 mmol/L (3.5-5.1)
[2024-01-27 02:27] LABS: BLOOD UREA NITROGEN 41.7 mg/dL (7-18); CALCIUM 9.3 mg/dL (8.5-10.1)
[2024-01-27 02:28] LABS: ALBUMIN 3.8 g/dl (3.4-5.0); MAGNESIUM 2.4 mg/dL (1.8-2.4)
[2024-01-27 02:30] LABS: CREATININE 1.8 mg/dL (0.55-1.3); PHOSPHOROUS 3.8 mg/dL (2.5-4.9)
[2024-01-27 02:32] LABS: BILIRUBIN,TOTAL 1.1 mg/dL (0.2-1); TOT PROT 6.8 g/dl (6.4-8.2)
[2024-01-27 03:00] LABS: INR 0.94 (0.83-1.09); PROTHROMBIN TIME (PATIENT) 10.6 SEC (9.7-13.0)
[2024-01-27 03:03] LABS: ACTIVATED PTT 28.3 SECONDS (25.2-36.5)
[2024-01-27] MEDS: SODIUM CHLORIDE 0.9% 500 ML INFUS.BAG IV ONE (06:01)
== END 2024-01-27 06:58 | disposition home or self-care (01) ==
LOC: JER 00:28
PROC: 3E033NZ Introduction of Analgesics, Hypnotics, Sedatives into Peripheral Vein, Percutaneous Approach (ICD-10-PCS; principal; 2024-01-27)
DX: K62.5 Hemorrhage of anus and rectum (principal); R10.31 Right lower quadrant pain; R10.32 Left lower quadrant pain
CPT/HCPCS: 36415; 74176-TC; 80053; 82272; 83735; 84100; 85025; 85610; 85730; 86850; 86900; 86901; 99284-25; J0131